=== PATIENT | male | born 1950 | race African-American/Black ===

== ENCOUNTER 2021-06-15 15:05 | Inpatient (IN) | payer OTHER ==
[2021-06-15 17:54] VITALS: BMI 22.9
[2021-06-15] MEDS ORDERED: BISMUTH SUBSALICYLATE 524 MG/30 ML PO PRN (20:03)
[2021-06-15] MEDS ORDERED: MAG HYDROX/AL HYDROX/SIMETH 30 ML UNIT-DOSE CUP PO PRN (20:03)
[2021-06-15] MEDS ORDERED: ACETAMINOPHEN 325 MG TABLET (FP) PO PRN ×2 (20:03)
[2021-06-15] MEDS ORDERED: ONDANSETRON *ODT* 4 MG TABLET SL PRN (20:03)
[2021-06-15] MEDS ORDERED: MENTHOL/PHENOL 1 EACH UD MM PRN (20:03)
[2021-06-15] MEDS ORDERED: NICOTINE POLACRILEX 4 MG GUM BUC PRN (20:03)
[2021-06-15] MEDS ORDERED: diazePAM 5 MG TABLET PO PRN (20:03)
[2021-06-15] MEDS ORDERED: MAGNESIUM CITRATE 300 ML BOTTLE PO PRN (20:03)
[2021-06-15] MEDS ORDERED: NICOTINE 10 MG CARTRIDGE (INHALER) IH PRN (20:03)
[2021-06-15] MEDS ORDERED: diazePAM 5 MG TABLET PO ONE (20:03)
[2021-06-15] MEDS ORDERED: IBUPROFEN 400 MG TABLET (FP) PO PRN (20:03)
[2021-06-15] MEDS ORDERED: METHOCARBAMOL 500 MG TABLET PO PRN (20:03)
[2021-06-15] MEDS: diazePAM 5 MG TABLET PO SCH (23:02)
[2021-06-15] MEDS: MELATONIN 5 MG TABLETS PO SCH (23:03)
[2021-06-15] MEDS: HYDROCHLOROTHIAZIDE 25 MG TABLET (FP) PO SCH (23:03)
[2021-06-15] MEDS: hydrOXYzine PAMOATE 25 MG CAPSULE (FP) PO SCH (23:03)
[2021-06-15] MEDS: THIAMINE HCL 100 MG TABLET (FP) PO SCH (23:03)
[2021-06-15] MEDS: PRENATAL VITAMINS W/ FOLIC ACID TABLET (FP) PO SCH (23:09)
[2021-06-16] MEDS: hydrOXYzine PAMOATE 25 MG CAPSULE (FP) PO SCH (05:22)
[2021-06-16] MEDS: diazePAM 5 MG TABLET PO SCH ×4 (05:22→23:44)
[2021-06-16] MEDS ORDERED: hydrOXYzine PAMOATE 25 MG CAPSULE (FP) PO PRN (08:17)
[2021-06-16] MEDS ORDERED: methaDONE HCL 10 MG TABLET PO ONE (08:26)
[2021-06-16] MEDS ORDERED: methaDONE 40 MG, methaDONE 20 MG PO ONE (08:45)
[2021-06-16] MEDS: PRENATAL VITAMINS W/ FOLIC ACID TABLET (FP) PO SCH (10:43)
[2021-06-16] MEDS: NICOTINE 21 MG/24 HOURS TOPICAL PATCH TD SCH (10:44)
[2021-06-16] MEDS ORDERED: methaDONE HCL 40 MG DISPERSABLE TABLET ONE (10:44)
[2021-06-16] MEDS ORDERED: methaDONE HCL 10 MG TABLET ONE (10:44)
[2021-06-16] MEDS: HYDROCHLOROTHIAZIDE 25 MG TABLET (FP) PO SCH (10:45)
[2021-06-16 11:37] LABS: HEMATOCRIT 34.5 % (35.4-49); HEMOGLOBIN 11.5 GM/dL (11.7-16.9); MCH 33.3 pg (25.7-33.7); MCHC 33.4 g/dl (32.0-35.9); MEAN CELL VOLUME 99.6 fl (80-96); PLATELET COUNT 158 10^3/uL (134-434); RBC 3.47 M/mm3 (4.00-5.60); RDW 14.8 % (11.9-15.9); WHITE BLOOD COUNT 5.8 K/mm3 (4.0-10.0)
[2021-06-16 11:41] LABS: CALCIUM 8.8 mg/dL (8.5-10.1)
[2021-06-16 11:42] LABS: ALBUMIN 3.1 g/dl (3.4-5.0); BLOOD UREA NITROGEN 14.6 mg/dL (7-18)
[2021-06-16 11:44] LABS: CREATININE 0.8 mg/dL (0.55-1.3)
[2021-06-16 11:46] LABS: BILIRUBIN,TOTAL 0.5 mg/dL (0.2-1); TOT PROT 6.3 g/dl (6.4-8.2)
[2021-06-16] MEDS ORDERED: PNEUMOC 13-VAL CONJ-DIP CRM/PF 0.5 ML DISP.SYRIN IM ONE (12:00)
[2021-06-16] MEDS: THIAMINE HCL 100 MG TABLET (FP) PO SCH (23:43)
[2021-06-17] MEDS: busPIRone HCL 10 MG TABLET (FP) PO SCH ×3 (00:26→22:33)
[2021-06-17] MEDS: MELATONIN 5 MG TABLETS PO SCH ×2 (00:27→22:33)
[2021-06-17] MEDS ORDERED: methaDONE HCL 10 MG TABLET ONE (05:00)
[2021-06-17] MEDS ORDERED: methaDONE HCL 40 MG DISPERSABLE TABLET ONE (05:00)
[2021-06-17] MEDS ORDERED: methaDONE HCL 40 MG DISPERSABLE TABLET PO SCH (06:00)
[2021-06-17] MEDS: diazePAM 5 MG TABLET PO SCH ×3 (06:24→22:32)
[2021-06-17] MEDS: methaDONE 40 MG, methaDONE 20 MG PO SCH (06:24)
[2021-06-17] MEDS ORDERED: buPROPion HCL 100 MG TABLET PO SCH (10:00)
[2021-06-17] MEDS: HYDROCHLOROTHIAZIDE 25 MG TABLET (FP) PO SCH (10:23)
[2021-06-17] MEDS: PRENATAL VITAMINS W/ FOLIC ACID TABLET (FP) PO SCH (10:23)
[2021-06-17] MEDS: NICOTINE 21 MG/24 HOURS TOPICAL PATCH TD SCH (10:24)
[2021-06-17] MEDS: KETOCONAZOLE 2% CREAM - 60GM TUBE TP SCH ×2 (13:29→22:40)
[2021-06-17] MEDS: FLUOCINONIDE 0.05% CREAM (60 GM TUBE) TP SCH ×3 (13:29→22:35)
[2021-06-17] MEDS: MAGNESIUM HYDROX 2400MG/30ML ORAL SUSPENSION 30 ML CUP PO PRN (22:33)
[2021-06-17] MEDS: THIAMINE HCL 100 MG TABLET (FP) PO SCH (22:33)
[2021-06-18] MEDS ORDERED: methaDONE HCL 40 MG DISPERSABLE TABLET ONE (05:08)
[2021-06-18] MEDS ORDERED: methaDONE HCL 10 MG TABLET ONE (05:08)
[2021-06-18] MEDS: methaDONE 40 MG, methaDONE 20 MG PO SCH (06:24)
[2021-06-18] MEDS: diazePAM 5 MG TABLET PO SCH ×2 (06:25→17:39)
[2021-06-18] MEDS: KETOCONAZOLE 2% CREAM - 60GM TUBE TP SCH ×3 (06:27→22:31)
[2021-06-18] MEDS: FLUOCINONIDE 0.05% CREAM (60 GM TUBE) TP SCH ×4 (10:18→22:31)
[2021-06-18] MEDS: PRENATAL VITAMINS W/ FOLIC ACID TABLET (FP) PO SCH (10:18)
[2021-06-18] MEDS: busPIRone HCL 10 MG TABLET (FP) PO SCH ×2 (10:18→22:29)
[2021-06-18] MEDS: HYDROCHLOROTHIAZIDE 25 MG TABLET (FP) PO SCH (10:18)
[2021-06-18] MEDS: NICOTINE 21 MG/24 HOURS TOPICAL PATCH TD SCH (10:20)
[2021-06-18] MEDS: THIAMINE HCL 100 MG TABLET (FP) PO SCH (22:29)
[2021-06-18] MEDS: MELATONIN 5 MG TABLETS PO SCH (22:29)
[2021-06-18] MEDS: MAGNESIUM HYDROX 2400MG/30ML ORAL SUSPENSION 30 ML CUP PO PRN (22:30)
[2021-06-19] MEDS ORDERED: methaDONE HCL 40 MG DISPERSABLE TABLET ONE (04:27)
[2021-06-19] MEDS ORDERED: methaDONE HCL 10 MG TABLET ONE (04:27)
[2021-06-19] MEDS ORDERED: diazePAM 5 MG TABLET PO ONE (06:00)
[2021-06-19] MEDS: methaDONE 40 MG, methaDONE 20 MG PO SCH (06:30)
[2021-06-19] MEDS: KETOCONAZOLE 2% CREAM - 60GM TUBE TP SCH ×2 (06:31→14:08)
[2021-06-19] MEDS: HYDROCHLOROTHIAZIDE 25 MG TABLET (FP) PO SCH (10:14)
[2021-06-19] MEDS: busPIRone HCL 10 MG TABLET (FP) PO SCH (10:14)
[2021-06-19] MEDS: PRENATAL VITAMINS W/ FOLIC ACID TABLET (FP) PO SCH (10:14)
[2021-06-19] MEDS: FLUOCINONIDE 0.05% CREAM (60 GM TUBE) TP SCH ×2 (10:17→14:08)
[2021-06-19] MEDS: NICOTINE 21 MG/24 HOURS TOPICAL PATCH TD SCH (10:19)
[2021-06-19 13:08] VITALS: BP 123/54; PULSE 60; TEMP 97.3
== END 2021-06-19 14:09 | disposition other institution (70) | DRG 897 ==
LOC: YASAS 15:05 → Y3N 20:53
PROVIDERS: ADMIT Allergy & Immunology; ATTEND Allergy & Immunology
PROC: HZ2ZZZZ Detoxification Services for Substance Abuse Treatment (ICD-10-PCS; principal; 2021-06-15)
DX: F10.230 Alcohol dependence with withdrawal, uncomplicated (principal); F11.20 Opioid dependence, uncomplicated; F12.20 Cannabis dependence, uncomplicated; F17.210 Nicotine dependence, cigarettes, uncomplicated; F19.24 Other psychoactive substance dependence with psychoactive substance-induced mood disorder; F41.8 Other specified anxiety disorders; I10 Essential (primary) hypertension; Z86.19 Personal history of other infectious and parasitic diseases; Z91.013 Allergy to seafood
CPT/HCPCS: 36415; 71046-TC-FY; 80053; 85027; 86780; C9803; U0003; U0005

== ENCOUNTER 2021-06-19 14:22 | Inpatient (IN) | payer OTHER ==
[2021-06-19] MEDS ORDERED: MAG HYDROX/AL HYDROX/SIMETH 30 ML UNIT-DOSE CUP PO PRN (16:07)
[2021-06-19] MEDS ORDERED: guaiFENesin 200 MG/10 ML 10 ML UNIT-DOSE CUPS PO PRN (16:07)
[2021-06-19] MEDS ORDERED: MENTHOL/PHENOL 1 EACH UD MM PRN (16:07)
[2021-06-19] MEDS ORDERED: IBUPROFEN 400 MG TABLET (FP) PO PRN (16:07)
[2021-06-19] MEDS ORDERED: MAGNESIUM CITRATE 300 ML BOTTLE PO PRN (16:07)
[2021-06-19] MEDS ORDERED: ACETAMINOPHEN 325 MG TABLET (FP) PO PRN (16:07)
[2021-06-19] MEDS ORDERED: LOPERAMIDE HCL 2 MG CAPSULE PO PRN (16:07)
[2021-06-19] MEDS ORDERED: P-EPHED 60MG/TRIPROLIDI 2.5MG TABLET PO PRN (16:07)
[2021-06-19] MEDS: NICOTINE 7 MG/24 HOURS TOPICAL PATCH TD SCH (18:50)
[2021-06-19] MEDS: hydrOXYzine PAMOATE 25 MG CAPSULE (FP) PO SCH ×2 (18:50→21:41)
[2021-06-19] MEDS: NICOTINE 10 MG CARTRIDGE (INHALER) IH PRN (21:41)
[2021-06-19] MEDS: MELATONIN 5 MG TABLETS PO SCH (21:41)
[2021-06-19] MEDS: THIAMINE HCL 100 MG TABLET (FP) PO SCH (21:41)
[2021-06-19] MEDS: busPIRone HCL 10 MG TABLET (FP) PO SCH (21:41)
[2021-06-19] MEDS: MAGNESIUM HYDROX 2400MG/30ML ORAL SUSPENSION 30 ML CUP PO PRN (21:41)
[2021-06-20] MEDS ORDERED: methaDONE HCL 40 MG DISPERSABLE TABLET ONE (04:21)
[2021-06-20] MEDS ORDERED: methaDONE HCL 10 MG TABLET ONE (04:21)
[2021-06-20] MEDS ORDERED: methaDONE HCL 10 MG TABLET PO SCH (06:00)
[2021-06-20] MEDS: hydrOXYzine PAMOATE 25 MG CAPSULE (FP) PO SCH ×5 (06:49→21:02)
[2021-06-20] MEDS: methaDONE 40 MG, methaDONE 20 MG PO SCH (06:49)
[2021-06-20] MEDS ORDERED: buPROPion HCL 100 MG TABLET PO SCH (10:00)
[2021-06-20] MEDS: busPIRone HCL 10 MG TABLET (FP) PO SCH ×2 (10:44→21:02)
[2021-06-20] MEDS: PRENATAL VITAMINS W/ FOLIC ACID TABLET (FP) PO SCH (10:44)
[2021-06-20] MEDS: NIFEdipine E.R. 30 MG TABLET PO SCH (10:44)
[2021-06-20] MEDS: NICOTINE 10 MG CARTRIDGE (INHALER) IH PRN (10:45)
[2021-06-20] MEDS: NICOTINE 7 MG/24 HOURS TOPICAL PATCH TD SCH (10:45)
[2021-06-20] MEDS ORDERED: PNEUMOC 13-VAL CONJ-DIP CRM/PF 0.5 ML DISP.SYRIN IM ONE (12:00)
[2021-06-20] MEDS: buPROPion HCL 100 MG TABLET PO SCH ×2 (12:18→18:14)
[2021-06-20] MEDS: MELATONIN 5 MG TABLETS PO SCH (21:02)
[2021-06-20] MEDS: THIAMINE HCL 100 MG TABLET (FP) PO SCH (21:02)
[2021-06-21] MEDS ORDERED: methaDONE HCL 10 MG TABLET ONE (05:28)
[2021-06-21] MEDS ORDERED: methaDONE HCL 40 MG DISPERSABLE TABLET ONE (05:28)
[2021-06-21] MEDS: methaDONE 40 MG, methaDONE 20 MG PO SCH (07:33)
[2021-06-21] MEDS: hydrOXYzine PAMOATE 25 MG CAPSULE (FP) PO SCH ×5 (07:33→21:36)
[2021-06-21] MEDS: NICOTINE 10 MG CARTRIDGE (INHALER) IH PRN (08:59)
[2021-06-21] MEDS ORDERED: PT OWN MED DRAWER 7, Y5N ONE ×2 (09:27→09:29)
[2021-06-21] MEDS: busPIRone HCL 10 MG TABLET (FP) PO SCH ×2 (09:45→21:36)
[2021-06-21] MEDS: NIFEdipine E.R. 30 MG TABLET PO SCH (09:45)
[2021-06-21] MEDS: NICOTINE 7 MG/24 HOURS TOPICAL PATCH TD SCH (09:45)
[2021-06-21] MEDS: PRENATAL VITAMINS W/ FOLIC ACID TABLET (FP) PO SCH (09:45)
[2021-06-21] MEDS: buPROPion HCL 100 MG TABLET PO SCH ×2 (09:46→17:08)
[2021-06-21] MEDS: MAGNESIUM HYDROX 2400MG/30ML ORAL SUSPENSION 30 ML CUP PO PRN (10:12)
[2021-06-21] MEDS: MELATONIN 5 MG TABLETS PO SCH (21:36)
[2021-06-21] MEDS: THIAMINE HCL 100 MG TABLET (FP) PO SCH (21:36)
[2021-06-22] MEDS ORDERED: methaDONE HCL 10 MG TABLET ONE (03:30)
[2021-06-22] MEDS ORDERED: methaDONE HCL 40 MG DISPERSABLE TABLET ONE (03:30)
[2021-06-22] MEDS: methaDONE 40 MG, methaDONE 20 MG PO SCH (06:25)
[2021-06-22] MEDS: NICOTINE 10 MG CARTRIDGE (INHALER) IH PRN ×2 (06:26→09:56)
[2021-06-22] MEDS: hydrOXYzine PAMOATE 25 MG CAPSULE (FP) PO SCH ×5 (06:26→21:00)
[2021-06-22] MEDS ORDERED: PT OWN MED DRAWER 7, Y5N ONE (09:16)
[2021-06-22] MEDS: buPROPion HCL 100 MG TABLET PO SCH ×2 (09:55→17:50)
[2021-06-22] MEDS: NIFEdipine E.R. 30 MG TABLET PO SCH (09:55)
[2021-06-22] MEDS: PRENATAL VITAMINS W/ FOLIC ACID TABLET (FP) PO SCH (09:55)
[2021-06-22] MEDS: NICOTINE 7 MG/24 HOURS TOPICAL PATCH TD SCH (09:56)
[2021-06-22] MEDS: busPIRone HCL 10 MG TABLET (FP) PO SCH ×2 (10:17→21:00)
[2021-06-22] MEDS: TOLNAFTATE 1% CREAM 15 GM TUBE TP SCH (21:00)
[2021-06-22] MEDS: MELATONIN 5 MG TABLETS PO SCH (21:00)
[2021-06-22] MEDS: THIAMINE HCL 100 MG TABLET (FP) PO SCH (21:00)
[2021-06-22] MEDS: FLUOCINONIDE 0.05% CREAM (15 GM TUBE) TP SCH (21:01)
[2021-06-23] MEDS ORDERED: methaDONE HCL 10 MG TABLET ONE (03:11)
[2021-06-23] MEDS ORDERED: methaDONE HCL 40 MG DISPERSABLE TABLET ONE (03:11)
[2021-06-23] MEDS: methaDONE 40 MG, methaDONE 20 MG PO SCH (06:32)
[2021-06-23] MEDS: hydrOXYzine PAMOATE 25 MG CAPSULE (FP) PO SCH ×5 (06:32→21:30)
[2021-06-23] MEDS: NICOTINE 10 MG CARTRIDGE (INHALER) IH PRN ×2 (09:09→22:01)
[2021-06-23] MEDS: PRENATAL VITAMINS W/ FOLIC ACID TABLET (FP) PO SCH (10:41)
[2021-06-23] MEDS: busPIRone HCL 10 MG TABLET (FP) PO SCH ×2 (10:41→21:30)
[2021-06-23] MEDS: FLUOCINONIDE 0.05% CREAM (15 GM TUBE) TP SCH ×2 (10:41→21:31)
[2021-06-23] MEDS: NICOTINE 7 MG/24 HOURS TOPICAL PATCH TD SCH (10:41)
[2021-06-23] MEDS: TOLNAFTATE 1% CREAM 15 GM TUBE TP SCH ×2 (10:42→21:31)
[2021-06-23] MEDS: NIFEdipine E.R. 30 MG TABLET PO SCH (10:42)
[2021-06-23] MEDS: buPROPion HCL 100 MG TABLET PO SCH ×2 (10:44→17:46)
[2021-06-23] MEDS ORDERED: PT OWN MED DRAWER 7, Y5N ONE ×2 (16:51→19:05)
[2021-06-23] MEDS: MELATONIN 5 MG TABLETS PO SCH (21:30)
[2021-06-23] MEDS: THIAMINE HCL 100 MG TABLET (FP) PO SCH (21:30)
[2021-06-24] MEDS ORDERED: methaDONE HCL 10 MG TABLET ONE (03:18)
[2021-06-24] MEDS ORDERED: methaDONE HCL 40 MG DISPERSABLE TABLET ONE (03:18)
[2021-06-24] MEDS: methaDONE 40 MG, methaDONE 20 MG PO SCH (06:28)
[2021-06-24] MEDS: hydrOXYzine PAMOATE 25 MG CAPSULE (FP) PO SCH ×5 (06:29→21:04)
[2021-06-24] MEDS: TOLNAFTATE 1% CREAM 15 GM TUBE TP SCH ×2 (09:45→21:04)
[2021-06-24] MEDS: NIFEdipine E.R. 30 MG TABLET PO SCH (09:45)
[2021-06-24] MEDS: busPIRone HCL 10 MG TABLET (FP) PO SCH ×2 (09:45→21:04)
[2021-06-24] MEDS: PRENATAL VITAMINS W/ FOLIC ACID TABLET (FP) PO SCH (09:45)
[2021-06-24] MEDS: NICOTINE 7 MG/24 HOURS TOPICAL PATCH TD SCH (09:45)
[2021-06-24] MEDS: FLUOCINONIDE 0.05% CREAM (15 GM TUBE) TP SCH ×2 (09:47→21:04)
[2021-06-24] MEDS: buPROPion HCL 100 MG TABLET PO SCH ×2 (14:18→17:12)
[2021-06-24] MEDS ORDERED: PT OWN MED DRAWER 7, Y5N ONE (16:47)
[2021-06-24] MEDS: MELATONIN 5 MG TABLETS PO SCH (21:04)
[2021-06-24] MEDS: THIAMINE HCL 100 MG TABLET (FP) PO SCH (21:04)
[2021-06-25] MEDS ORDERED: methaDONE HCL 10 MG TABLET ONE (02:59)
[2021-06-25] MEDS ORDERED: methaDONE HCL 40 MG DISPERSABLE TABLET ONE (02:59)
[2021-06-25] MEDS: hydrOXYzine PAMOATE 25 MG CAPSULE (FP) PO SCH ×5 (06:40→21:47)
[2021-06-25] MEDS: methaDONE 40 MG, methaDONE 20 MG PO SCH (06:40)
[2021-06-25] MEDS: buPROPion HCL 100 MG TABLET PO SCH ×2 (10:14→17:00)
[2021-06-25] MEDS: PRENATAL VITAMINS W/ FOLIC ACID TABLET (FP) PO SCH (10:17)
[2021-06-25] MEDS: NICOTINE 7 MG/24 HOURS TOPICAL PATCH TD SCH (10:17)
[2021-06-25] MEDS: NIFEdipine E.R. 30 MG TABLET PO SCH (10:17)
[2021-06-25] MEDS: busPIRone HCL 10 MG TABLET (FP) PO SCH ×2 (10:17→21:47)
[2021-06-25] MEDS: TOLNAFTATE 1% CREAM 15 GM TUBE TP SCH ×2 (10:18→21:53)
[2021-06-25] MEDS: NICOTINE 10 MG CARTRIDGE (INHALER) IH PRN ×2 (10:30→21:48)
[2021-06-25] MEDS: FLUOCINONIDE 0.05% CREAM (15 GM TUBE) TP SCH ×2 (10:55→21:53)
[2021-06-25] MEDS ORDERED: PT OWN MED DRAWER 7, Y5N ONE ×2 (11:10→16:58)
[2021-06-25] MEDS: THIAMINE HCL 100 MG TABLET (FP) PO SCH (21:47)
[2021-06-25] MEDS: MELATONIN 5 MG TABLETS PO SCH (21:47)
[2021-06-26] MEDS ORDERED: methaDONE HCL 40 MG DISPERSABLE TABLET ONE (03:18)
[2021-06-26] MEDS ORDERED: methaDONE HCL 10 MG TABLET ONE (03:18)
[2021-06-26] MEDS: methaDONE 40 MG, methaDONE 20 MG PO SCH (05:54)
[2021-06-26] MEDS: hydrOXYzine PAMOATE 25 MG CAPSULE (FP) PO SCH ×5 (05:54→21:09)
[2021-06-26] MEDS: PRENATAL VITAMINS W/ FOLIC ACID TABLET (FP) PO SCH (10:11)
[2021-06-26] MEDS: NIFEdipine E.R. 30 MG TABLET PO SCH (10:11)
[2021-06-26] MEDS: busPIRone HCL 10 MG TABLET (FP) PO SCH ×2 (10:11→21:09)
[2021-06-26] MEDS: FLUOCINONIDE 0.05% CREAM (15 GM TUBE) TP SCH ×2 (10:11→21:10)
[2021-06-26] MEDS: TOLNAFTATE 1% CREAM 15 GM TUBE TP SCH ×2 (10:13→21:10)
[2021-06-26] MEDS: NICOTINE 7 MG/24 HOURS TOPICAL PATCH TD SCH (10:13)
[2021-06-26] MEDS: NICOTINE 10 MG CARTRIDGE (INHALER) IH PRN (10:13)
[2021-06-26] MEDS: buPROPion HCL 100 MG TABLET PO SCH ×2 (10:15→17:38)
[2021-06-26] MEDS: MELATONIN 5 MG TABLETS PO SCH (21:09)
[2021-06-26] MEDS: THIAMINE HCL 100 MG TABLET (FP) PO SCH (21:09)
[2021-06-27] MEDS ORDERED: methaDONE HCL 40 MG DISPERSABLE TABLET ONE (03:14)
[2021-06-27] MEDS ORDERED: methaDONE HCL 10 MG TABLET ONE (03:15)
[2021-06-27] MEDS: hydrOXYzine PAMOATE 25 MG CAPSULE (FP) PO SCH ×5 (06:21→21:35)
[2021-06-27] MEDS: methaDONE 40 MG, methaDONE 20 MG PO SCH (06:21)
[2021-06-27] MEDS: PRENATAL VITAMINS W/ FOLIC ACID TABLET (FP) PO SCH (10:22)
[2021-06-27] MEDS: NIFEdipine E.R. 30 MG TABLET PO SCH (10:22)
[2021-06-27] MEDS: NICOTINE 7 MG/24 HOURS TOPICAL PATCH TD SCH (10:23)
[2021-06-27] MEDS: buPROPion HCL 100 MG TABLET PO SCH ×2 (10:23→17:25)
[2021-06-27] MEDS: busPIRone HCL 10 MG TABLET (FP) PO SCH ×2 (10:23→21:35)
[2021-06-27] MEDS: TOLNAFTATE 1% CREAM 15 GM TUBE TP SCH ×2 (10:24→21:36)
[2021-06-27] MEDS: FLUOCINONIDE 0.05% CREAM (15 GM TUBE) TP SCH ×2 (10:25→21:36)
[2021-06-27] MEDS ORDERED: PT OWN MED DRAWER 7, Y5N ONE (10:40)
[2021-06-27] MEDS: MELATONIN 5 MG TABLETS PO SCH (21:35)
[2021-06-27] MEDS: THIAMINE HCL 100 MG TABLET (FP) PO SCH (21:35)
[2021-06-27] MEDS: NICOTINE 10 MG CARTRIDGE (INHALER) IH PRN (21:36)
[2021-06-28] MEDS ORDERED: methaDONE HCL 10 MG TABLET ONE (03:17)
[2021-06-28] MEDS ORDERED: methaDONE HCL 40 MG DISPERSABLE TABLET ONE (03:17)
[2021-06-28] MEDS: hydrOXYzine PAMOATE 25 MG CAPSULE (FP) PO SCH ×5 (06:25→21:01)
[2021-06-28] MEDS: methaDONE 40 MG, methaDONE 20 MG PO SCH (06:25)
[2021-06-28] MEDS: NICOTINE 10 MG CARTRIDGE (INHALER) IH PRN ×2 (06:27→10:21)
[2021-06-28] MEDS: busPIRone HCL 10 MG TABLET (FP) PO SCH ×2 (10:14→21:00)
[2021-06-28] MEDS: buPROPion HCL 100 MG TABLET PO SCH ×2 (10:14→17:35)
[2021-06-28] MEDS: TOLNAFTATE 1% CREAM 15 GM TUBE TP SCH ×2 (10:14→21:01)
[2021-06-28] MEDS: PRENATAL VITAMINS W/ FOLIC ACID TABLET (FP) PO SCH (10:14)
[2021-06-28] MEDS: NIFEdipine E.R. 30 MG TABLET PO SCH (10:14)
[2021-06-28] MEDS: NICOTINE 7 MG/24 HOURS TOPICAL PATCH TD SCH (10:14)
[2021-06-28] MEDS: FLUOCINONIDE 0.05% CREAM (15 GM TUBE) TP SCH ×2 (10:16→21:01)
[2021-06-28] MEDS: MELATONIN 5 MG TABLETS PO SCH (21:00)
[2021-06-28] MEDS: THIAMINE HCL 100 MG TABLET (FP) PO SCH (21:00)
[2021-06-29] MEDS ORDERED: methaDONE HCL 40 MG DISPERSABLE TABLET ONE (03:13)
[2021-06-29] MEDS ORDERED: methaDONE HCL 10 MG TABLET ONE (03:13)
[2021-06-29] MEDS: hydrOXYzine PAMOATE 25 MG CAPSULE (FP) PO SCH ×2 (06:26→11:24)
[2021-06-29] MEDS: methaDONE 40 MG, methaDONE 20 MG PO SCH (06:26)
[2021-06-29] MEDS: busPIRone HCL 10 MG TABLET (FP) PO SCH ×2 (10:49→21:37)
[2021-06-29] MEDS: NICOTINE 7 MG/24 HOURS TOPICAL PATCH TD SCH (11:01)
[2021-06-29] MEDS: NIFEdipine E.R. 30 MG TABLET PO SCH (11:01)
[2021-06-29] MEDS: PRENATAL VITAMINS W/ FOLIC ACID TABLET (FP) PO SCH (11:01)
[2021-06-29] MEDS: FLUOCINONIDE 0.05% CREAM (15 GM TUBE) TP SCH ×2 (11:01→21:38)
[2021-06-29] MEDS: buPROPion HCL 100 MG TABLET PO SCH ×2 (11:01→17:45)
[2021-06-29] MEDS: NICOTINE 10 MG CARTRIDGE (INHALER) IH PRN ×3 (11:02→19:01)
[2021-06-29] MEDS: TOLNAFTATE 1% CREAM 15 GM TUBE TP SCH ×2 (11:03→21:38)
[2021-06-29] MEDS: MELATONIN 5 MG TABLETS PO SCH (21:36)
[2021-06-29] MEDS: THIAMINE HCL 100 MG TABLET (FP) PO SCH (21:36)
[2021-06-30] MEDS ORDERED: methaDONE HCL 40 MG DISPERSABLE TABLET ONE (03:21)
[2021-06-30] MEDS ORDERED: methaDONE HCL 10 MG TABLET ONE (03:21)
[2021-06-30] MEDS: methaDONE 40 MG, methaDONE 20 MG PO SCH (06:36)
[2021-06-30] MEDS ORDERED: PT OWN MED DRAWER 7, Y5N ONE ×2 (08:55→17:10)
[2021-06-30] MEDS: FLUOCINONIDE 0.05% CREAM (15 GM TUBE) TP SCH ×2 (09:52→21:05)
[2021-06-30] MEDS: NICOTINE 7 MG/24 HOURS TOPICAL PATCH TD SCH (09:52)
[2021-06-30] MEDS: NIFEdipine E.R. 30 MG TABLET PO SCH (09:52)
[2021-06-30] MEDS: busPIRone HCL 10 MG TABLET (FP) PO SCH ×2 (09:52→21:05)
[2021-06-30] MEDS: TOLNAFTATE 1% CREAM 15 GM TUBE TP SCH ×2 (09:52→22:00)
[2021-06-30] MEDS: PRENATAL VITAMINS W/ FOLIC ACID TABLET (FP) PO SCH (09:52)
[2021-06-30] MEDS: buPROPion HCL 100 MG TABLET PO SCH ×2 (09:53→17:10)
[2021-06-30] MEDS: MELATONIN 5 MG TABLETS PO SCH (21:05)
[2021-06-30] MEDS: THIAMINE HCL 100 MG TABLET (FP) PO SCH (21:05)
[2021-06-30] MEDS: NICOTINE 10 MG CARTRIDGE (INHALER) IH PRN (22:00)
[2021-07-01] MEDS ORDERED: methaDONE HCL 10 MG TABLET ONE (03:03)
[2021-07-01] MEDS ORDERED: methaDONE HCL 40 MG DISPERSABLE TABLET ONE (03:03)
[2021-07-01] MEDS: methaDONE 40 MG, methaDONE 20 MG PO SCH (06:42)
[2021-07-01] MEDS ORDERED: hydrOXYzine PAMOATE 25 MG CAPSULE (FP) PO PRN (08:29)
[2021-07-01] MEDS: NICOTINE 10 MG CARTRIDGE (INHALER) IH PRN (10:08)
[2021-07-01] MEDS: PRENATAL VITAMINS W/ FOLIC ACID TABLET (FP) PO SCH (10:08)
[2021-07-01] MEDS: TOLNAFTATE 1% CREAM 15 GM TUBE TP SCH ×2 (10:08→21:19)
[2021-07-01] MEDS: buPROPion HCL 100 MG TABLET PO SCH ×2 (10:08→17:48)
[2021-07-01] MEDS: NICOTINE 7 MG/24 HOURS TOPICAL PATCH TD SCH (10:08)
[2021-07-01] MEDS: NIFEdipine E.R. 30 MG TABLET PO SCH (10:08)
[2021-07-01] MEDS: FLUOCINONIDE 0.05% CREAM (15 GM TUBE) TP SCH ×2 (10:08→21:19)
[2021-07-01] MEDS: busPIRone HCL 10 MG TABLET (FP) PO SCH ×2 (10:08→21:18)
[2021-07-01] MEDS ORDERED: AMMONIUM LACTATE 12% LOTION 225 GM BOTTLE TP PRN (10:20)
[2021-07-01] MEDS: MELATONIN 5 MG TABLETS PO SCH (21:18)
[2021-07-01] MEDS: THIAMINE HCL 100 MG TABLET (FP) PO SCH (21:18)
[2021-07-02] MEDS ORDERED: methaDONE HCL 10 MG TABLET ONE (03:05)
[2021-07-02] MEDS ORDERED: methaDONE HCL 40 MG DISPERSABLE TABLET ONE (03:05)
[2021-07-02] MEDS: methaDONE 40 MG, methaDONE 20 MG PO SCH (06:29)
[2021-07-02] MEDS: NICOTINE 10 MG CARTRIDGE (INHALER) IH PRN ×3 (06:49→21:01)
[2021-07-02] MEDS: NIFEdipine E.R. 30 MG TABLET PO SCH (10:21)
[2021-07-02] MEDS: PRENATAL VITAMINS W/ FOLIC ACID TABLET (FP) PO SCH (10:21)
[2021-07-02] MEDS: NICOTINE 7 MG/24 HOURS TOPICAL PATCH TD SCH (10:22)
[2021-07-02] MEDS: buPROPion HCL 100 MG TABLET PO SCH ×2 (10:22→17:30)
[2021-07-02] MEDS: TOLNAFTATE 1% CREAM 15 GM TUBE TP SCH ×2 (10:22→21:02)
[2021-07-02] MEDS: busPIRone HCL 10 MG TABLET (FP) PO SCH ×2 (10:22→21:01)
[2021-07-02] MEDS: FLUOCINONIDE 0.05% CREAM (15 GM TUBE) TP SCH ×2 (10:22→21:02)
[2021-07-02] MEDS: THIAMINE HCL 100 MG TABLET (FP) PO SCH (21:01)
[2021-07-02] MEDS: MELATONIN 5 MG TABLETS PO SCH (21:01)
[2021-07-03] MEDS ORDERED: methaDONE HCL 10 MG TABLET ONE (05:58)
[2021-07-03] MEDS ORDERED: methaDONE HCL 40 MG DISPERSABLE TABLET ONE (05:58)
[2021-07-03] MEDS ORDERED: methaDONE 40 MG, methaDONE 20 MG PO SCH (06:00)
[2021-07-03 07:18] VITALS: BP 155/82; PULSE 65; TEMP 97.5
[2021-07-03] MEDS: PRENATAL VITAMINS W/ FOLIC ACID TABLET (FP) PO SCH (09:41)
[2021-07-03] MEDS: busPIRone HCL 10 MG TABLET (FP) PO SCH (09:42)
[2021-07-03] MEDS: NIFEdipine E.R. 30 MG TABLET PO SCH (09:42)
[2021-07-03] MEDS: FLUOCINONIDE 0.05% CREAM (15 GM TUBE) TP SCH (09:42)
[2021-07-03] MEDS: NICOTINE 10 MG CARTRIDGE (INHALER) IH PRN (09:44)
== END 2021-07-03 09:49 | disposition home or self-care (01) | DRG 895 ==
LOC: YASAS 14:22 → Y3W 14:24
PROVIDERS: ADMIT Allergy & Immunology; ATTEND Allergy & Immunology
PROC: HZ42ZZZ Group Counseling for Substance Abuse Treatment, Cognitive-Behavioral (ICD-10-PCS; principal; 2021-06-19)
DX: F11.20 Opioid dependence, uncomplicated (principal); F10.20 Alcohol dependence, uncomplicated; F12.20 Cannabis dependence, uncomplicated; F17.210 Nicotine dependence, cigarettes, uncomplicated; F19.24 Other psychoactive substance dependence with psychoactive substance-induced mood disorder; F41.9 Anxiety disorder, unspecified; F32.9 Major depressive disorder, single episode, unspecified; I10 Essential (primary) hypertension; B19.20 Unspecified viral hepatitis C without hepatic coma
CPT/HCPCS: 90670

== ENCOUNTER 2021-12-10 12:00 | Inpatient (IN) | payer OTHER ==
[2021-12-10] MEDS ORDERED: MAGNESIUM CITRATE 300 ML BOTTLE PO PRN (15:42)
[2021-12-10] MEDS ORDERED: MAGNESIUM HYDROX 2400MG/30ML ORAL SUSPENSION 30 ML CUP PO PRN (15:42)
[2021-12-10] MEDS ORDERED: MENTHOL/PHENOL 1 EACH UD MM PRN (15:42)
[2021-12-10] MEDS ORDERED: MAG HYDROX/AL HYDROX/SIMETH 30 ML UNIT-DOSE CUP PO PRN (15:42)
[2021-12-10] MEDS ORDERED: chlordiazePOXIDE HCL 25 MG CAPSULE PO PRN (15:42)
[2021-12-10] MEDS ORDERED: LOPERAMIDE HCL 2 MG CAPSULE PO PRN (15:42)
[2021-12-10] MEDS ORDERED: BISMUTH SUBSALICYLATE 524 MG/30 ML PO PRN (15:42)
[2021-12-10] MEDS ORDERED: IBUPROFEN 400 MG TABLET (FP) PO PRN (15:42)
[2021-12-10] MEDS ORDERED: ACETAMINOPHEN 325 MG TABLET (FP) PO PRN ×2 (15:42)
[2021-12-10] MEDS ORDERED: ONDANSETRON *ODT* 4 MG TABLET SL PRN (15:42)
[2021-12-10 16:05] VITALS: BMI 23.1
[2021-12-10] MEDS: chlordiazePOXIDE HCL 25 MG CAPSULE PO SCH ×2 (21:14→22:23)
[2021-12-10] MEDS: hydrOXYzine PAMOATE 25 MG CAPSULE (FP) PO SCH ×2 (21:15→21:20)
[2021-12-10] MEDS: THIAMINE HCL 100 MG TABLET (FP) PO SCH (21:20)
[2021-12-10] MEDS: PRENATAL VITAMINS W/ FOLIC ACID TABLET (FP) PO SCH (21:20)
[2021-12-10] MEDS ORDERED: NIFEdipine E.R. 30 MG TABLET PO ONE (21:34)
[2021-12-10] MEDS ORDERED: OXICONAZOLE NITRATE TP SCH (22:00)
[2021-12-10] MEDS: MELATONIN 5 MG TABLETS PO SCH (22:23)
[2021-12-10] MEDS: KETOCONAZOLE 2% CREAM - 60GM TUBE TP SCH (23:40)
[2021-12-11] MEDS: KETOCONAZOLE 2% CREAM - 60GM TUBE TP SCH ×3 (05:49→22:45)
[2021-12-11] MEDS: hydrOXYzine PAMOATE 25 MG CAPSULE (FP) PO SCH (05:49)
[2021-12-11] MEDS: chlordiazePOXIDE HCL 25 MG CAPSULE PO SCH ×4 (05:50→22:43)
[2021-12-11] MEDS ORDERED: hydrOXYzine PAMOATE 25 MG CAPSULE (FP) PO PRN (09:03)
[2021-12-11] MEDS ORDERED: methaDONE HCL 10 MG TABLET PO SCH (09:15)
[2021-12-11] MEDS ORDERED: methaDONE 40 MG, methaDONE 20 MG PO ONE (09:45)
[2021-12-11] MEDS ORDERED: methaDONE HCL 40 MG DISPERSABLE TABLET ONE (10:04)
[2021-12-11] MEDS ORDERED: methaDONE HCL 10 MG TABLET ONE (10:04)
[2021-12-11] MEDS: METHOCARBAMOL 500 MG TABLET PO PRN (10:07)
[2021-12-11] MEDS: PRENATAL VITAMINS W/ FOLIC ACID TABLET (FP) PO SCH (10:08)
[2021-12-11] MEDS: busPIRone HCL 10 MG TABLET (FP) PO SCH ×2 (10:08→22:43)
[2021-12-11] MEDS: NIFEdipine E.R. 30 MG TABLET PO SCH (10:08)
[2021-12-11] MEDS: buPROPion HCL 100 MG TABLET PO SCH ×2 (12:03→17:40)
[2021-12-11 12:37] LABS: HEMATOCRIT 35.3 % (35.4-49); HEMOGLOBIN 12.1 GM/dL (11.7-16.9); MCH 33.5 pg (25.7-33.7); MCHC 34.2 g/dl (32.0-35.9); MEAN PLT VOLUME 9.3 fl (7.5-11.1); PLATELET COUNT 143 10^3/uL (134-434); RDW 15.7 % (11.9-15.9); WHITE BLOOD COUNT 4.6 K/mm3 (4.0-10.0)
[2021-12-11 12:48] LABS: ALBUMIN 3.4 g/dl (3.4-5.0); BLOOD UREA NITROGEN 23.5 mg/dL (7-18)
[2021-12-11 12:53] LABS: BILIRUBIN,TOTAL 0.8 mg/dL (0.2-1); TOT PROT 6.6 g/dl (6.4-8.2)
[2021-12-11] MEDS ORDERED: PNEUMOC 13-VAL CONJ-DIP CRM/PF 0.5 ML DISP.SYRIN IM ONE (13:00)
[2021-12-11] MEDS ORDERED: cloNIDine HCL 0.1 MG TABLET PO ONE (19:00)
[2021-12-11] MEDS: THIAMINE HCL 100 MG TABLET (FP) PO SCH (22:43)
[2021-12-11] MEDS: MELATONIN 5 MG TABLETS PO SCH (22:44)
[2021-12-12] MEDS ORDERED: methaDONE HCL 40 MG DISPERSABLE TABLET ONE (04:49)
[2021-12-12] MEDS ORDERED: methaDONE HCL 10 MG TABLET ONE (04:49)
[2021-12-12] MEDS: chlordiazePOXIDE HCL 25 MG CAPSULE PO SCH ×4 (05:53→22:19)
[2021-12-12] MEDS: methaDONE 40 MG, methaDONE 20 MG PO SCH (05:54)
[2021-12-12] MEDS: KETOCONAZOLE 2% CREAM - 60GM TUBE TP SCH ×3 (05:59→22:20)
[2021-12-12] MEDS: NIFEdipine E.R. 30 MG TABLET PO SCH (10:29)
[2021-12-12] MEDS: buPROPion HCL 100 MG TABLET PO SCH ×2 (10:29→18:27)
[2021-12-12] MEDS: busPIRone HCL 10 MG TABLET (FP) PO SCH ×2 (10:29→22:19)
[2021-12-12] MEDS: PRENATAL VITAMINS W/ FOLIC ACID TABLET (FP) PO SCH (10:29)
[2021-12-12] MEDS: NICOTINE 10 MG CARTRIDGE (INHALER) IH PRN (21:26)
[2021-12-12] MEDS: THIAMINE HCL 100 MG TABLET (FP) PO SCH (22:19)
[2021-12-12] MEDS: MELATONIN 5 MG TABLETS PO SCH (22:19)
[2021-12-13] MEDS ORDERED: chlordiazePOXIDE HCL 10 MG CAPSULE PO PRN
[2021-12-13] MEDS ORDERED: methaDONE HCL 40 MG DISPERSABLE TABLET ONE (04:23)
[2021-12-13] MEDS ORDERED: methaDONE HCL 10 MG TABLET ONE (04:23)
[2021-12-13] MEDS: KETOCONAZOLE 2% CREAM - 60GM TUBE TP SCH ×3 (06:17→22:42)
[2021-12-13] MEDS: methaDONE 40 MG, methaDONE 20 MG PO SCH (06:17)
[2021-12-13] MEDS: chlordiazePOXIDE HCL 10 MG CAPSULE PO SCH ×4 (06:18→22:41)
[2021-12-13] MEDS: PRENATAL VITAMINS W/ FOLIC ACID TABLET (FP) PO SCH (10:22)
[2021-12-13] MEDS: busPIRone HCL 10 MG TABLET (FP) PO SCH ×2 (10:22→22:42)
[2021-12-13] MEDS: buPROPion HCL 100 MG TABLET PO SCH ×2 (10:22→22:45)
[2021-12-13] MEDS: NIFEdipine E.R. 30 MG TABLET PO SCH (10:22)
[2021-12-13] MEDS: NICOTINE 10 MG CARTRIDGE (INHALER) IH PRN (13:29)
[2021-12-13] MEDS: MELATONIN 5 MG TABLETS PO SCH (22:42)
[2021-12-13] MEDS: THIAMINE HCL 100 MG TABLET (FP) PO SCH (22:42)
[2021-12-14] MEDS ORDERED: methaDONE HCL 40 MG DISPERSABLE TABLET ONE (04:37)
[2021-12-14] MEDS ORDERED: methaDONE HCL 10 MG TABLET ONE (04:37)
[2021-12-14] MEDS: KETOCONAZOLE 2% CREAM - 60GM TUBE TP SCH ×3 (06:23→22:06)
[2021-12-14] MEDS: methaDONE 40 MG, methaDONE 20 MG PO SCH (06:23)
[2021-12-14] MEDS: chlordiazePOXIDE HCL 10 MG CAPSULE PO SCH ×2 (06:23→17:41)
[2021-12-14] MEDS: buPROPion HCL 100 MG TABLET PO SCH ×2 (10:10→17:38)
[2021-12-14] MEDS: NIFEdipine E.R. 30 MG TABLET PO SCH (10:10)
[2021-12-14] MEDS: busPIRone HCL 10 MG TABLET (FP) PO SCH ×2 (10:10→22:05)
[2021-12-14] MEDS: PRENATAL VITAMINS W/ FOLIC ACID TABLET (FP) PO SCH (10:11)
[2021-12-14] MEDS: NICOTINE 10 MG CARTRIDGE (INHALER) IH PRN ×2 (14:12→17:43)
[2021-12-14] MEDS: cloNIDine HCL 0.1 MG TABLET PO PRN (22:05)
[2021-12-14] MEDS: THIAMINE HCL 100 MG TABLET (FP) PO SCH (22:05)
[2021-12-14] MEDS: MELATONIN 5 MG TABLETS PO SCH (22:05)
[2021-12-15] MEDS ORDERED: methaDONE HCL 40 MG DISPERSABLE TABLET ONE (04:12)
[2021-12-15] MEDS ORDERED: methaDONE HCL 10 MG TABLET ONE (04:12)
[2021-12-15] MEDS ORDERED: chlordiazePOXIDE HCL 10 MG CAPSULE PO ONE (05:00)
[2021-12-15] MEDS: methaDONE 40 MG, methaDONE 20 MG PO SCH (05:31)
[2021-12-15] MEDS: cloNIDine HCL 0.1 MG TABLET PO PRN (05:31)
[2021-12-15] MEDS: KETOCONAZOLE 2% CREAM - 60GM TUBE TP SCH ×3 (05:43→22:39)
[2021-12-15] MEDS: buPROPion HCL 100 MG TABLET PO SCH ×2 (10:19→18:28)
[2021-12-15] MEDS: PRENATAL VITAMINS W/ FOLIC ACID TABLET (FP) PO SCH (10:19)
[2021-12-15] MEDS: NIFEdipine E.R. 30 MG TABLET PO SCH (10:19)
[2021-12-15] MEDS: busPIRone HCL 10 MG TABLET (FP) PO SCH ×2 (10:19→22:40)
[2021-12-15] MEDS: NICOTINE 10 MG CARTRIDGE (INHALER) IH PRN ×2 (10:41→18:21)
[2021-12-15] MEDS: METHOCARBAMOL 500 MG TABLET PO PRN (22:40)
[2021-12-15] MEDS: THIAMINE HCL 100 MG TABLET (FP) PO SCH (22:40)
[2021-12-15] MEDS: MELATONIN 5 MG TABLETS PO SCH (22:40)
[2021-12-16] MEDS ORDERED: methaDONE HCL 40 MG DISPERSABLE TABLET ONE (04:07)
[2021-12-16] MEDS ORDERED: methaDONE HCL 10 MG TABLET ONE (04:07)
[2021-12-16] MEDS: KETOCONAZOLE 2% CREAM - 60GM TUBE TP SCH (05:32)
[2021-12-16] MEDS: methaDONE 40 MG, methaDONE 20 MG PO SCH (05:32)
[2021-12-16 08:11] LABS: SARS-CoV-2 NAA Not Detected (Not Detected)
[2021-12-16] MEDS: NICOTINE 10 MG CARTRIDGE (INHALER) IH PRN (08:16)
[2021-12-16 08:41] VITALS: BP 116/68; PULSE 98; TEMP 97.3
[2021-12-16] MEDS: buPROPion HCL 100 MG TABLET PO SCH (10:06)
[2021-12-16] MEDS: busPIRone HCL 10 MG TABLET (FP) PO SCH (10:06)
[2021-12-16] MEDS: NIFEdipine E.R. 30 MG TABLET PO SCH (10:06)
[2021-12-16] MEDS: PRENATAL VITAMINS W/ FOLIC ACID TABLET (FP) PO SCH (10:06)
[2021-12-18 14:07] LABS: SARS-CoV-2 NAA Not Detected (Not Detected)
== END 2021-12-16 11:37 | disposition other institution (70) | DRG 897 ==
LOC: YASAS 12:00 → Y3N 17:35
PROVIDERS: ADMIT Allergy & Immunology; ATTEND Allergy & Immunology
PROC: HZ2ZZZZ Detoxification Services for Substance Abuse Treatment (ICD-10-PCS; principal; 2021-12-10)
DX: F10.230 Alcohol dependence with withdrawal, uncomplicated (principal); F11.20 Opioid dependence, uncomplicated; F12.20 Cannabis dependence, uncomplicated; F17.210 Nicotine dependence, cigarettes, uncomplicated; F19.24 Other psychoactive substance dependence with psychoactive substance-induced mood disorder; F32.A Depression, unspecified; I10 Essential (primary) hypertension; R79.89 Other specified abnormal findings of blood chemistry; R74.01 Elevation of levels of liver transaminase levels; Z86.59 Personal history of other mental and behavioral disorders; Z91.013 Allergy to seafood
CPT/HCPCS: 36415; 80053; 85027; 86780; 87811; C9803; J0735; U0003; U0005

== ENCOUNTER 2021-12-16 12:42 | Inpatient (IN) | payer OTHER ==
[2021-12-16] MEDS ORDERED: LOPERAMIDE HCL 2 MG CAPSULE PO PRN (14:27)
[2021-12-16] MEDS ORDERED: guaiFENesin 200 MG/10 ML 10 ML UNIT-DOSE CUPS PO PRN (14:27)
[2021-12-16] MEDS ORDERED: MAG HYDROX/AL HYDROX/SIMETH 30 ML UNIT-DOSE CUP PO PRN (14:27)
[2021-12-16] MEDS ORDERED: MENTHOL/PHENOL 1 EACH UD MM PRN (14:27)
[2021-12-16] MEDS ORDERED: MAGNESIUM HYDROX 2400MG/30ML ORAL SUSPENSION 30 ML CUP PO PRN (14:27)
[2021-12-16] MEDS ORDERED: ACETAMINOPHEN 325 MG TABLET (FP) PO PRN (14:27)
[2021-12-16] MEDS ORDERED: MAGNESIUM CITRATE 300 ML BOTTLE PO PRN (14:27)
[2021-12-16] MEDS ORDERED: IBUPROFEN 400 MG TABLET (FP) PO PRN (14:27)
[2021-12-16] MEDS ORDERED: P-EPHED 60MG/TRIPROLIDI 2.5MG TABLET PO PRN (14:27)
[2021-12-16] MEDS: NICOTINE 10 MG CARTRIDGE (INHALER) IH PRN ×2 (16:04→21:24)
[2021-12-16] MEDS: MELATONIN 5 MG TABLETS PO SCH (21:24)
[2021-12-16] MEDS: THIAMINE HCL 100 MG TABLET (FP) PO SCH (21:24)
[2021-12-16] MEDS: hydrOXYzine PAMOATE 25 MG CAPSULE (FP) PO PRN (21:27)
[2021-12-17] MEDS: methaDONE HCL 10 MG TABLET PO SCH (07:54)
[2021-12-17] MEDS ORDERED: NIFEdipine E.R. 30 MG TABLET PO SCH (10:00)
[2021-12-17] MEDS: NICOTINE 7 MG/24 HOURS TOPICAL PATCH TD SCH (10:14)
[2021-12-17] MEDS: PRENATAL VITAMINS W/ FOLIC ACID TABLET (FP) PO SCH (10:14)
[2021-12-17] MEDS: busPIRone HCL 10 MG TABLET (FP) PO SCH ×2 (12:51→21:21)
[2021-12-17] MEDS: buPROPion HCL 100 MG TABLET PO SCH ×2 (12:51→21:19)
[2021-12-17] MEDS: ACAMPROSATE CALCIUM 333 MG TABLET.DR PO SCH ×2 (12:51→21:20)
[2021-12-17] MEDS: NICOTINE 10 MG CARTRIDGE (INHALER) IH PRN (12:53)
[2021-12-17] MEDS: THIAMINE HCL 100 MG TABLET (FP) PO SCH (21:20)
[2021-12-17] MEDS: MELATONIN 5 MG TABLETS PO SCH (21:20)
[2021-12-17] MEDS: hydrOXYzine PAMOATE 25 MG CAPSULE (FP) PO PRN (21:23)
[2021-12-18] MEDS: methaDONE HCL 10 MG TABLET PO SCH (06:09)
[2021-12-18] MEDS: ACAMPROSATE CALCIUM 333 MG TABLET.DR PO SCH ×2 (10:15→21:50)
[2021-12-18] MEDS: buPROPion HCL 100 MG TABLET PO SCH ×2 (10:16→17:36)
[2021-12-18] MEDS: PRENATAL VITAMINS W/ FOLIC ACID TABLET (FP) PO SCH (10:17)
[2021-12-18] MEDS: busPIRone HCL 10 MG TABLET (FP) PO SCH ×2 (10:17→21:50)
[2021-12-18] MEDS: NICOTINE 7 MG/24 HOURS TOPICAL PATCH TD SCH (10:17)
[2021-12-18] MEDS: NIFEdipine E.R 60 MG TABLET PO SCH (10:18)
[2021-12-18] MEDS: NICOTINE 10 MG CARTRIDGE (INHALER) IH PRN (10:20)
[2021-12-18] MEDS: MELATONIN 5 MG TABLETS PO SCH (21:51)
[2021-12-18] MEDS: hydrOXYzine PAMOATE 25 MG CAPSULE (FP) PO PRN (21:51)
[2021-12-18] MEDS: THIAMINE HCL 100 MG TABLET (FP) PO SCH (21:51)
[2021-12-19] MEDS ORDERED: methaDONE HCL 40 MG DISPERSABLE TABLET ONE (06:03)
[2021-12-19] MEDS ORDERED: methaDONE HCL 10 MG TABLET ONE (06:03)
[2021-12-19] MEDS: methaDONE 40 MG, methaDONE 20 MG PO SCH (06:52)
[2021-12-19] MEDS: PRENATAL VITAMINS W/ FOLIC ACID TABLET (FP) PO SCH (09:15)
[2021-12-19] MEDS: busPIRone HCL 10 MG TABLET (FP) PO SCH ×2 (09:15→21:22)
[2021-12-19] MEDS: buPROPion HCL 100 MG TABLET PO SCH ×2 (09:15→17:40)
[2021-12-19] MEDS: NICOTINE 7 MG/24 HOURS TOPICAL PATCH TD SCH (09:16)
[2021-12-19] MEDS: ACAMPROSATE CALCIUM 333 MG TABLET.DR PO SCH ×2 (09:16→21:23)
[2021-12-19] MEDS: NIFEdipine E.R 60 MG TABLET PO SCH (09:16)
[2021-12-19] MEDS: NICOTINE 10 MG CARTRIDGE (INHALER) IH PRN (09:17)
[2021-12-19] MEDS: MELATONIN 5 MG TABLETS PO SCH (21:22)
[2021-12-19] MEDS: THIAMINE HCL 100 MG TABLET (FP) PO SCH (21:23)
[2021-12-19] MEDS: hydrOXYzine PAMOATE 25 MG CAPSULE (FP) PO PRN (21:24)
[2021-12-20] MEDS ORDERED: methaDONE HCL 40 MG DISPERSABLE TABLET ONE (03:34)
[2021-12-20] MEDS ORDERED: methaDONE HCL 10 MG TABLET ONE (03:34)
[2021-12-20] MEDS: methaDONE 40 MG, methaDONE 20 MG PO SCH (06:23)
[2021-12-20] MEDS: PRENATAL VITAMINS W/ FOLIC ACID TABLET (FP) PO SCH (09:52)
[2021-12-20] MEDS: busPIRone HCL 10 MG TABLET (FP) PO SCH ×2 (09:52→23:01)
[2021-12-20] MEDS: buPROPion HCL 100 MG TABLET PO SCH ×2 (09:52→17:14)
[2021-12-20] MEDS: NICOTINE 10 MG CARTRIDGE (INHALER) IH PRN (09:53)
[2021-12-20] MEDS: NICOTINE 7 MG/24 HOURS TOPICAL PATCH TD SCH (09:53)
[2021-12-20] MEDS: ACAMPROSATE CALCIUM 333 MG TABLET.DR PO SCH ×2 (09:53→23:01)
[2021-12-20] MEDS: NIFEdipine E.R 60 MG TABLET PO SCH (09:55)
[2021-12-20] MEDS: THIAMINE HCL 100 MG TABLET (FP) PO SCH (23:01)
[2021-12-20] MEDS: MELATONIN 5 MG TABLETS PO SCH (23:01)
[2021-12-21] MEDS ORDERED: methaDONE HCL 10 MG TABLET ONE (02:43)
[2021-12-21] MEDS ORDERED: methaDONE HCL 40 MG DISPERSABLE TABLET ONE (02:43)
[2021-12-21] MEDS: methaDONE 40 MG, methaDONE 20 MG PO SCH (06:14)
[2021-12-21] MEDS: busPIRone HCL 10 MG TABLET (FP) PO SCH ×2 (10:00→22:01)
[2021-12-21] MEDS: PRENATAL VITAMINS W/ FOLIC ACID TABLET (FP) PO SCH (10:00)
[2021-12-21] MEDS: ACAMPROSATE CALCIUM 333 MG TABLET.DR PO SCH ×2 (10:00→22:02)
[2021-12-21] MEDS: NICOTINE 7 MG/24 HOURS TOPICAL PATCH TD SCH (10:01)
[2021-12-21] MEDS: buPROPion HCL 100 MG TABLET PO SCH ×2 (10:01→19:31)
[2021-12-21] MEDS: NIFEdipine E.R 60 MG TABLET PO SCH (12:04)
[2021-12-21] MEDS: NICOTINE 10 MG CARTRIDGE (INHALER) IH PRN ×3 (14:45→22:55)
[2021-12-21] MEDS: hydrOXYzine PAMOATE 25 MG CAPSULE (FP) PO PRN (22:01)
[2021-12-21] MEDS: MELATONIN 5 MG TABLETS PO SCH (22:01)
[2021-12-21] MEDS: THIAMINE HCL 100 MG TABLET (FP) PO SCH (22:01)
[2021-12-22] MEDS ORDERED: methaDONE HCL 10 MG TABLET ONE (03:06)
[2021-12-22] MEDS ORDERED: methaDONE HCL 40 MG DISPERSABLE TABLET ONE (03:06)
[2021-12-22] MEDS: methaDONE 40 MG, methaDONE 20 MG PO SCH (06:23)
[2021-12-22 07:17] VITALS: PULSE 84; TEMP 97.1
[2021-12-22] MEDS: NICOTINE 10 MG CARTRIDGE (INHALER) IH PRN ×2 (09:12→14:47)
[2021-12-22] MEDS: NIFEdipine E.R 60 MG TABLET PO SCH (09:54)
[2021-12-22] MEDS: PRENATAL VITAMINS W/ FOLIC ACID TABLET (FP) PO SCH (09:54)
[2021-12-22] MEDS: busPIRone HCL 10 MG TABLET (FP) PO SCH (09:54)
[2021-12-22] MEDS: ACAMPROSATE CALCIUM 333 MG TABLET.DR PO SCH (09:55)
[2021-12-22] MEDS: buPROPion HCL 100 MG TABLET PO SCH (09:55)
[2021-12-22] MEDS: NICOTINE 7 MG/24 HOURS TOPICAL PATCH TD SCH (09:56)
[2021-12-22 11:57] VITALS: BP 104/58
[2021-12-23 10:09] LABS: SARS-CoV-2 NAA Not Detected (Not Detected)
== END 2021-12-22 15:00 | disposition home or self-care (01) | DRG 895 ==
LOC: YASAS 12:42 → Y5N 12:43
PROVIDERS: ADMIT Allergy & Immunology; ATTEND Allergy & Immunology
PROC: HZ42ZZZ Group Counseling for Substance Abuse Treatment, Cognitive-Behavioral (ICD-10-PCS; principal; 2021-12-16)
DX: F11.20 Opioid dependence, uncomplicated (principal); F10.20 Alcohol dependence, uncomplicated; F12.20 Cannabis dependence, uncomplicated; F17.210 Nicotine dependence, cigarettes, uncomplicated; F41.8 Other specified anxiety disorders; F32.A Depression, unspecified; I10 Essential (primary) hypertension; R79.89 Other specified abnormal findings of blood chemistry; R74.01 Elevation of levels of liver transaminase levels
CPT/HCPCS: C9803; U0003; U0005

== ENCOUNTER 2022-03-31 12:40 | Inpatient (IN) | payer OTHER ==
[2022-03-31 13:02] VITALS: BMI 23.7
[2022-03-31] MEDS ORDERED: DICYCLOMINE HCL 10 MG CAPSULE PO PRN (14:04)
[2022-03-31] MEDS ORDERED: IBUPROFEN 600 MG TABLET (FP) PO PRN (14:04)
[2022-03-31] MEDS ORDERED: MAGNESIUM HYDROX 2400MG/30ML ORAL SUSPENSION 30 ML CUP PO PRN (14:04)
[2022-03-31] MEDS ORDERED: ONDANSETRON *ODT* 4 MG TABLET SL PRN (14:04)
[2022-03-31] MEDS ORDERED: IBUPROFEN 400 MG TABLET (FP) PO PRN (14:04)
[2022-03-31] MEDS ORDERED: MAG HYDROX/AL HYDROX/SIMETH 30 ML UNIT-DOSE CUP PO PRN (14:04)
[2022-03-31] MEDS ORDERED: BENZOCAINE/MENTHOL (CHLORASEPTIC ) LOZENGE MM PRN (14:04)
[2022-03-31] MEDS ORDERED: ACETAMINOPHEN 325 MG TABLET (FP) PO PRN ×2 (14:04)
[2022-03-31] MEDS ORDERED: LORazepam 1 MG TABLET PO PRN (14:04)
[2022-03-31] MEDS ORDERED: MAGNESIUM CITRATE 300 ML BOTTLE PO PRN (14:04)
[2022-03-31] MEDS ORDERED: LOPERAMIDE HCL 2 MG CAPSULE PO PRN (14:04)
[2022-03-31] MEDS ORDERED: BISMUTH SUBSALICYLATE 262 MG/15 ML BTL PO PRN (14:04)
[2022-03-31] MEDS: LORazepam 2 MG TABLET PO SCH ×2 (19:08→22:51)
[2022-03-31] MEDS: THIAMINE HCL 100 MG TABLET (FP) PO SCH (22:51)
[2022-03-31] MEDS: MELATONIN 5 MG TABLETS PO SCH (22:52)
[2022-04-01] MEDS: LORazepam 2 MG TABLET PO SCH ×4 (05:58→22:31)
[2022-04-01] MEDS ORDERED: methaDONE HCL 10 MG TABLET PO ONE (09:25)
[2022-04-01] MEDS ORDERED: methaDONE 40 MG, methaDONE 20 MG PO ONE (09:53)
[2022-04-01] MEDS ORDERED: NIFEdipine E.R 60 MG TABLET PO SCH (10:00)
[2022-04-01] MEDS ORDERED: methaDONE HCL 40 MG DISPERSABLE TABLET ONE (10:52)
[2022-04-01] MEDS ORDERED: methaDONE HCL 10 MG TABLET ONE (10:52)
[2022-04-01] MEDS: PRENATAL VITAMINS W/ FOLIC ACID TABLET (FP) PO SCH (10:53)
[2022-04-01] MEDS: buPROPion HCL 100 MG TABLET PO SCH ×2 (10:54→17:45)
[2022-04-01] MEDS: busPIRone HCL 10 MG TABLET (FP) PO SCH ×2 (10:54→22:32)
[2022-04-01] MEDS: NICOTINE 7 MG/24 HOURS TOPICAL PATCH TD SCH (10:54)
[2022-04-01] MEDS: METHOCARBAMOL 500 MG TABLET PO PRN (10:54)
[2022-04-01] MEDS: amLODIPine BESYLATE 10 MG TABLET (FP) PO SCH (10:54)
[2022-04-01 11:50] LABS: HEMATOCRIT 38.5 % (35.4-49); HEMOGLOBIN 12.5 GM/dL (11.7-16.9); MCH 31.1 pg (25.7-33.7); MCHC 32.5 g/dl (32.0-35.9); MEAN CELL VOLUME 95.5 fl (80-96); MEAN PLT VOLUME 9.6 fl (7.5-11.1); PLATELET COUNT 205 10^3/uL (134-434); RBC 4.04 M/mm3 (4.00-5.60); RDW 15.3 % (11.9-15.9)
[2022-04-01 11:52] LABS: CALCIUM 9.5 mg/dL (8.5-10.1)
[2022-04-01 11:53] LABS: ALBUMIN 3.5 g/dl (3.4-5.0); BLOOD UREA NITROGEN 17.8 mg/dL (7-18)
[2022-04-01 11:56] LABS: CREATININE 0.8 mg/dL (0.55-1.3)
[2022-04-01 11:57] LABS: BILIRUBIN,TOTAL 0.4 mg/dL (0.2-1); TOT PROT 7.2 g/dl (6.4-8.2)
[2022-04-01] MEDS: NICOTINE 10 MG CARTRIDGE (INHALER) IH PRN (14:45)
[2022-04-01] MEDS: THIAMINE HCL 100 MG TABLET (FP) PO SCH (22:31)
[2022-04-01] MEDS: MELATONIN 5 MG TABLETS PO SCH (22:48)
[2022-04-02] MEDS ORDERED: methaDONE HCL 10 MG TABLET ONE (04:08)
[2022-04-02] MEDS ORDERED: methaDONE HCL 40 MG DISPERSABLE TABLET ONE (04:08)
[2022-04-02] MEDS: methaDONE 40 MG, methaDONE 20 MG PO SCH (05:30)
[2022-04-02] MEDS: LORazepam 1 MG TABLET PO SCH ×4 (05:31→22:32)
[2022-04-02] MEDS: hydrOXYzine PAMOATE 25 MG CAPSULE (FP) PO PRN ×3 (05:31→22:32)
[2022-04-02] MEDS ORDERED: methaDONE HCL 10 MG TABLET PO SCH (06:00)
[2022-04-02] MEDS: METHOCARBAMOL 500 MG TABLET PO PRN ×2 (10:32→22:32)
[2022-04-02] MEDS: buPROPion HCL 100 MG TABLET PO SCH ×2 (10:32→18:12)
[2022-04-02] MEDS: amLODIPine BESYLATE 10 MG TABLET (FP) PO SCH (10:32)
[2022-04-02] MEDS: PRENATAL VITAMINS W/ FOLIC ACID TABLET (FP) PO SCH (10:32)
[2022-04-02] MEDS: busPIRone HCL 10 MG TABLET (FP) PO SCH ×2 (10:33→22:32)
[2022-04-02] MEDS: NICOTINE 10 MG CARTRIDGE (INHALER) IH PRN (10:33)
[2022-04-02] MEDS: NICOTINE 7 MG/24 HOURS TOPICAL PATCH TD SCH (10:33)
[2022-04-02] MEDS: MELATONIN 5 MG TABLETS PO SCH (22:31)
[2022-04-02] MEDS: THIAMINE HCL 100 MG TABLET (FP) PO SCH (22:31)
[2022-04-03] MEDS ORDERED: LORazepam 0.5 MG TABLET PO PRN
[2022-04-03] MEDS ORDERED: methaDONE HCL 10 MG TABLET ONE (04:11)
[2022-04-03] MEDS ORDERED: methaDONE HCL 40 MG DISPERSABLE TABLET ONE (04:11)
[2022-04-03] MEDS: methaDONE 40 MG, methaDONE 20 MG PO SCH (06:28)
[2022-04-03] MEDS: LORazepam 0.5 MG TABLET PO SCH ×4 (06:28→22:25)
[2022-04-03] MEDS: busPIRone HCL 10 MG TABLET (FP) PO SCH ×2 (09:27→22:25)
[2022-04-03] MEDS: buPROPion HCL 100 MG TABLET PO SCH ×2 (09:28→17:47)
[2022-04-03] MEDS: hydrOXYzine PAMOATE 25 MG CAPSULE (FP) PO PRN (09:28)
[2022-04-03] MEDS: PRENATAL VITAMINS W/ FOLIC ACID TABLET (FP) PO SCH (09:28)
[2022-04-03] MEDS: amLODIPine BESYLATE 10 MG TABLET (FP) PO SCH (09:35)
[2022-04-03] MEDS: NICOTINE 10 MG CARTRIDGE (INHALER) IH PRN ×3 (09:38→22:27)
[2022-04-03] MEDS: NICOTINE 7 MG/24 HOURS TOPICAL PATCH TD SCH (10:20)
[2022-04-03] MEDS: THIAMINE HCL 100 MG TABLET (FP) PO SCH (22:25)
[2022-04-03] MEDS: MELATONIN 5 MG TABLETS PO SCH (22:26)
[2022-04-04] MEDS ORDERED: methaDONE HCL 10 MG TABLET ONE (04:43)
[2022-04-04] MEDS ORDERED: methaDONE HCL 40 MG DISPERSABLE TABLET ONE (04:43)
[2022-04-04] MEDS ORDERED: LORazepam 0.5 MG TABLET PO ONE (05:00)
[2022-04-04] MEDS: methaDONE 40 MG, methaDONE 20 MG PO SCH (05:45)
[2022-04-04] MEDS: NICOTINE 10 MG CARTRIDGE (INHALER) IH PRN ×4 (07:48→22:44)
[2022-04-04] MEDS: amLODIPine BESYLATE 10 MG TABLET (FP) PO SCH (10:43)
[2022-04-04] MEDS: NICOTINE 7 MG/24 HOURS TOPICAL PATCH TD SCH (10:43)
[2022-04-04] MEDS: PRENATAL VITAMINS W/ FOLIC ACID TABLET (FP) PO SCH (10:43)
[2022-04-04] MEDS: busPIRone HCL 10 MG TABLET (FP) PO SCH ×2 (10:44→22:16)
[2022-04-04] MEDS: buPROPion HCL 100 MG TABLET PO SCH ×2 (10:44→18:06)
[2022-04-04] MEDS: hydrOXYzine PAMOATE 25 MG CAPSULE (FP) PO PRN (10:46)
[2022-04-04] MEDS: MELATONIN 5 MG TABLETS PO SCH (22:16)
[2022-04-04] MEDS: THIAMINE HCL 100 MG TABLET (FP) PO SCH (22:16)
[2022-04-05] MEDS ORDERED: methaDONE HCL 10 MG TABLET ONE (04:17)
[2022-04-05] MEDS ORDERED: methaDONE HCL 40 MG DISPERSABLE TABLET ONE (04:17)
[2022-04-05] MEDS: methaDONE 40 MG, methaDONE 20 MG PO SCH (05:55)
[2022-04-05 09:08] VITALS: BP 102/58; PULSE 67; TEMP 98.1
[2022-04-05] MEDS: PRENATAL VITAMINS W/ FOLIC ACID TABLET (FP) PO SCH (10:19)
[2022-04-05] MEDS: NICOTINE 7 MG/24 HOURS TOPICAL PATCH TD SCH (10:19)
[2022-04-05] MEDS: buPROPion HCL 100 MG TABLET PO SCH (10:19)
[2022-04-05] MEDS: amLODIPine BESYLATE 10 MG TABLET (FP) PO SCH (10:19)
[2022-04-05] MEDS: busPIRone HCL 10 MG TABLET (FP) PO SCH (10:20)
[2022-04-05] MEDS: NICOTINE 10 MG CARTRIDGE (INHALER) IH PRN (10:22)
== END 2022-04-05 15:08 | disposition other institution (70) | DRG 897 ==
LOC: YASAS 12:40 → Y6N 15:41
PROVIDERS: ADMIT Allergy & Immunology; ATTEND Surgery
PROC: HZ2ZZZZ Detoxification Services for Substance Abuse Treatment (ICD-10-PCS; principal; 2022-03-31)
DX: F10.20 Alcohol dependence, uncomplicated (principal); F11.20 Opioid dependence, uncomplicated; F12.20 Cannabis dependence, uncomplicated; F17.210 Nicotine dependence, cigarettes, uncomplicated; F41.8 Other specified anxiety disorders; F32.A Depression, unspecified; I10 Essential (primary) hypertension; B18.2 Chronic viral hepatitis C; R73.03 Prediabetes
CPT/HCPCS: 36415; 80053; 82947; 82962; 83036; 85027; 86780; 93005; 93010; C9803-CS; U0003; U0005

== ENCOUNTER 2022-04-05 15:01 | Inpatient (IN) | payer OTHER ==
[~2022-04-05 15:01] MED LIST: ACETAMINOPHEN 325 MG TABLET (FP) PO PRN; IBUPROFEN 400 MG TABLET (FP) PO PRN; LOPERAMIDE HCL 2 MG CAPSULE PO PRN; MAG HYDROX/AL HYDROX/SIMETH 30 ML UNIT-DOSE CUP PO PRN; MAGNESIUM CITRATE 300 ML BOTTLE PO PRN; MAGNESIUM HYDROX 2400MG/30ML ORAL SUSPENSION 30 ML CUP PO PRN; MELATONIN 5 MG TABLETS PO SCH; NICOTINE 10 MG CARTRIDGE (INHALER) IH PRN; NICOTINE 7 MG/24 HOURS TOPICAL PATCH TD SCH; NICOTINE POLACRILEX 2 MG GUM BC PRN; PRENATAL VITAMINS W/ FOLIC ACID TABLET (FP) PO SCH; THIAMINE HCL 100 MG TABLET (FP) PO SCH; amLODIPine BESYLATE 10 MG TABLET (FP) PO SCH; guaiFENesin 200 MG/10 ML 10 ML UNIT-DOSE CUPS PO PRN; hydrOXYzine PAMOATE 25 MG CAPSULE (FP) PO PRN; methaDONE 40 MG, methaDONE 20 MG PO SCH; methaDONE HCL 10 MG TABLET PO SCH
[2022-04-05] MEDS ORDERED: ACETAMINOPHEN 325 MG TABLET (FP) PO PRN (16:15)
[2022-04-05] MEDS ORDERED: IBUPROFEN 400 MG TABLET (FP) PO PRN (16:15)
[2022-04-05] MEDS ORDERED: LOPERAMIDE HCL 2 MG CAPSULE PO PRN (16:15)
[2022-04-05] MEDS ORDERED: NICOTINE POLACRILEX 2 MG GUM BC PRN (16:15)
[2022-04-05] MEDS ORDERED: guaiFENesin 200 MG/10 ML 10 ML UNIT-DOSE CUPS PO PRN (16:15)
[2022-04-05] MEDS: MAGNESIUM HYDROX 2400MG/30ML ORAL SUSPENSION 30 ML CUP PO PRN (16:39)
[2022-04-05] MEDS ORDERED: ONDANSETRON *ODT* 4 MG TABLET SL PRN (18:03)
[2022-04-05] MEDS: buPROPion HCL 100 MG TABLET PO SCH (18:52)
[2022-04-05] MEDS: busPIRone HCL 10 MG TABLET (FP) PO SCH (21:05)
[2022-04-05] MEDS: MELATONIN 5 MG TABLETS PO SCH (21:05)
[2022-04-05] MEDS: THIAMINE HCL 100 MG TABLET (FP) PO SCH (21:05)
[2022-04-06] MEDS: buPROPion HCL 100 MG TABLET PO SCH ×4 (08:22→18:28)
[2022-04-06] MEDS: busPIRone HCL 10 MG TABLET (FP) PO SCH ×4 (08:23→21:12)
[2022-04-06] MEDS ORDERED: BISMUTH SUBSALICYLATE 262 MG/15 ML BTL PO ONE (08:56)
[2022-04-06] MEDS ORDERED: methaDONE HCL 10 MG TABLET ONE (09:03)
[2022-04-06] MEDS: methaDONE 40 MG, methaDONE 20 MG PO SCH (09:04)
[2022-04-06] MEDS ORDERED: methaDONE HCL 40 MG DISPERSABLE TABLET ONE (09:04)
[2022-04-06] MEDS: NICOTINE 10 MG CARTRIDGE (INHALER) IH PRN (09:06)
[2022-04-06] MEDS: amLODIPine BESYLATE 10 MG TABLET (FP) PO SCH (10:01)
[2022-04-06] MEDS: PRENATAL VITAMINS W/ FOLIC ACID TABLET (FP) PO SCH (10:03)
[2022-04-06] MEDS: NICOTINE 7 MG/24 HOURS TOPICAL PATCH TD SCH (10:03)
[2022-04-06] MEDS: NIFEdipine E.R 60 MG TABLET PO SCH (12:13)
[2022-04-06] MEDS ORDERED: MAG HYDROX/AL HYDROX/SIMETH 30 ML UNIT-DOSE CUP PO PRN (16:13)
[2022-04-06] MEDS: MELATONIN 5 MG TABLETS PO SCH (21:12)
[2022-04-06] MEDS: THIAMINE HCL 100 MG TABLET (FP) PO SCH (21:12)
[2022-04-07] MEDS ORDERED: methaDONE HCL 40 MG DISPERSABLE TABLET ONE (03:55)
[2022-04-07] MEDS ORDERED: methaDONE HCL 10 MG TABLET ONE (03:55)
[2022-04-07] MEDS: methaDONE 40 MG, methaDONE 20 MG PO SCH (06:16)
[2022-04-07] MEDS: MAGNESIUM CITRATE 300 ML BOTTLE PO PRN (06:50)
[2022-04-07] MEDS ORDERED: SODIUM PHOSPHATE/NA BIPHOS 133 ML ENEMA RC ONE (10:45)
[2022-04-07] MEDS: NIFEdipine E.R 60 MG TABLET PO SCH (11:34)
[2022-04-07] MEDS: busPIRone HCL 10 MG TABLET (FP) PO SCH ×2 (11:34→21:03)
[2022-04-07] MEDS: buPROPion HCL 100 MG TABLET PO SCH ×2 (11:34→18:17)
[2022-04-07] MEDS: PRENATAL VITAMINS W/ FOLIC ACID TABLET (FP) PO SCH (11:34)
[2022-04-07] MEDS: amLODIPine BESYLATE 10 MG TABLET (FP) PO SCH (11:36)
[2022-04-07] MEDS: NICOTINE 7 MG/24 HOURS TOPICAL PATCH TD SCH (11:37)
[2022-04-07] MEDS: NICOTINE 10 MG CARTRIDGE (INHALER) IH PRN (21:03)
[2022-04-07] MEDS: THIAMINE HCL 100 MG TABLET (FP) PO SCH (21:03)
[2022-04-07] MEDS: MELATONIN 5 MG TABLETS PO SCH (21:03)
[2022-04-08] MEDS ORDERED: methaDONE HCL 10 MG TABLET ONE (04:48)
[2022-04-08] MEDS ORDERED: methaDONE HCL 40 MG DISPERSABLE TABLET ONE (04:49)
[2022-04-08] MEDS: methaDONE 40 MG, methaDONE 20 MG PO SCH (06:25)
[2022-04-08] MEDS: MAGNESIUM HYDROX 2400MG/30ML ORAL SUSPENSION 30 ML CUP PO PRN (06:30)
[2022-04-08] MEDS: NICOTINE 10 MG CARTRIDGE (INHALER) IH PRN (10:06)
[2022-04-08] MEDS: buPROPion HCL 100 MG TABLET PO SCH ×2 (10:06→18:50)
[2022-04-08] MEDS: busPIRone HCL 10 MG TABLET (FP) PO SCH ×2 (10:06→21:06)
[2022-04-08] MEDS: PRENATAL VITAMINS W/ FOLIC ACID TABLET (FP) PO SCH (10:06)
[2022-04-08] MEDS: amLODIPine BESYLATE 10 MG TABLET (FP) PO SCH (10:07)
[2022-04-08] MEDS: NIFEdipine E.R 60 MG TABLET PO SCH (10:07)
[2022-04-08] MEDS: NICOTINE 7 MG/24 HOURS TOPICAL PATCH TD SCH (11:22)
[2022-04-08] MEDS: MELATONIN 5 MG TABLETS PO SCH (21:06)
[2022-04-08] MEDS: DOCUSATE SODIUM 100 MG CAPSULE (FP) PO SCH (21:06)
[2022-04-08] MEDS: THIAMINE HCL 100 MG TABLET (FP) PO SCH (21:06)
[2022-04-09] MEDS ORDERED: methaDONE HCL 10 MG TABLET ONE (05:33)
[2022-04-09] MEDS ORDERED: methaDONE HCL 40 MG DISPERSABLE TABLET ONE (05:34)
[2022-04-09] MEDS: methaDONE 40 MG, methaDONE 20 MG PO SCH (06:18)
[2022-04-09] MEDS: NIFEdipine E.R 60 MG TABLET PO SCH (11:06)
[2022-04-09] MEDS: busPIRone HCL 10 MG TABLET (FP) PO SCH ×2 (11:06→21:01)
[2022-04-09] MEDS: buPROPion HCL 100 MG TABLET PO SCH ×2 (11:07→18:32)
[2022-04-09] MEDS: PRENATAL VITAMINS W/ FOLIC ACID TABLET (FP) PO SCH (11:07)
[2022-04-09] MEDS: amLODIPine BESYLATE 10 MG TABLET (FP) PO SCH (11:09)
[2022-04-09] MEDS: NICOTINE 7 MG/24 HOURS TOPICAL PATCH TD SCH (11:09)
[2022-04-09] MEDS: MAGNESIUM HYDROX 2400MG/30ML ORAL SUSPENSION 30 ML CUP PO PRN (14:06)
[2022-04-09] MEDS: NICOTINE 10 MG CARTRIDGE (INHALER) IH PRN (14:06)
[2022-04-09] MEDS: DOCUSATE SODIUM 100 MG CAPSULE (FP) PO SCH (21:01)
[2022-04-09] MEDS: THIAMINE HCL 100 MG TABLET (FP) PO SCH (21:01)
[2022-04-09] MEDS: MELATONIN 5 MG TABLETS PO SCH (21:01)
[2022-04-10] MEDS ORDERED: methaDONE HCL 10 MG TABLET ONE (03:12)
[2022-04-10] MEDS ORDERED: methaDONE HCL 40 MG DISPERSABLE TABLET ONE (03:12)
[2022-04-10] MEDS: methaDONE 40 MG, methaDONE 20 MG PO SCH (05:56)
[2022-04-10] MEDS: NIFEdipine E.R 60 MG TABLET PO SCH (10:08)
[2022-04-10] MEDS: amLODIPine BESYLATE 10 MG TABLET (FP) PO SCH (10:08)
[2022-04-10] MEDS: PRENATAL VITAMINS W/ FOLIC ACID TABLET (FP) PO SCH (10:08)
[2022-04-10] MEDS: NICOTINE 7 MG/24 HOURS TOPICAL PATCH TD SCH (10:08)
[2022-04-10] MEDS: buPROPion HCL 100 MG TABLET PO SCH ×2 (10:08→17:13)
[2022-04-10] MEDS: busPIRone HCL 10 MG TABLET (FP) PO SCH ×2 (10:08→21:05)
[2022-04-10] MEDS: NICOTINE 10 MG CARTRIDGE (INHALER) IH PRN (10:09)
[2022-04-10] MEDS: DOCUSATE SODIUM 100 MG CAPSULE (FP) PO SCH (21:05)
[2022-04-10] MEDS: MELATONIN 5 MG TABLETS PO SCH (21:06)
[2022-04-10] MEDS: THIAMINE HCL 100 MG TABLET (FP) PO SCH (21:06)
[2022-04-11] MEDS ORDERED: methaDONE HCL 40 MG DISPERSABLE TABLET ONE (03:02)
[2022-04-11] MEDS ORDERED: methaDONE HCL 10 MG TABLET ONE (03:02)
[2022-04-11] MEDS: methaDONE 40 MG, methaDONE 20 MG PO SCH (06:27)
[2022-04-11] MEDS: MAGNESIUM HYDROX 2400MG/30ML ORAL SUSPENSION 30 ML CUP PO PRN (06:28)
[2022-04-11] MEDS: busPIRone HCL 10 MG TABLET (FP) PO SCH ×2 (10:44→21:35)
[2022-04-11] MEDS: PRENATAL VITAMINS W/ FOLIC ACID TABLET (FP) PO SCH (10:44)
[2022-04-11] MEDS: NIFEdipine E.R 60 MG TABLET PO SCH (10:44)
[2022-04-11] MEDS: buPROPion HCL 100 MG TABLET PO SCH ×2 (10:44→18:45)
[2022-04-11] MEDS: amLODIPine BESYLATE 10 MG TABLET (FP) PO SCH (10:44)
[2022-04-11] MEDS: NICOTINE 7 MG/24 HOURS TOPICAL PATCH TD SCH (10:44)
[2022-04-11] MEDS: NICOTINE 10 MG CARTRIDGE (INHALER) IH PRN (10:54)
[2022-04-11] MEDS: DOCUSATE SODIUM 100 MG CAPSULE (FP) PO SCH (21:35)
[2022-04-11] MEDS: MELATONIN 5 MG TABLETS PO SCH (21:36)
[2022-04-11] MEDS: THIAMINE HCL 100 MG TABLET (FP) PO SCH (21:36)
[2022-04-12] MEDS ORDERED: methaDONE HCL 10 MG TABLET ONE (02:54)
[2022-04-12] MEDS ORDERED: methaDONE HCL 40 MG DISPERSABLE TABLET ONE (02:54)
[2022-04-12] MEDS: methaDONE 40 MG, methaDONE 20 MG PO SCH (06:27)
[2022-04-12] MEDS: MAGNESIUM CITRATE 300 ML BOTTLE PO PRN (06:29)
[2022-04-12] MEDS: NICOTINE 10 MG CARTRIDGE (INHALER) IH PRN ×2 (06:34→21:12)
[2022-04-12] MEDS: amLODIPine BESYLATE 10 MG TABLET (FP) PO SCH (10:11)
[2022-04-12] MEDS: busPIRone HCL 10 MG TABLET (FP) PO SCH ×2 (10:11→21:12)
[2022-04-12] MEDS: PRENATAL VITAMINS W/ FOLIC ACID TABLET (FP) PO SCH (10:11)
[2022-04-12] MEDS: NIFEdipine E.R 60 MG TABLET PO SCH (10:11)
[2022-04-12] MEDS: buPROPion HCL 100 MG TABLET PO SCH ×2 (10:12→17:56)
[2022-04-12] MEDS: NICOTINE 7 MG/24 HOURS TOPICAL PATCH TD SCH (10:12)
[2022-04-12] MEDS: MELATONIN 5 MG TABLETS PO SCH (21:12)
[2022-04-12] MEDS: THIAMINE HCL 100 MG TABLET (FP) PO SCH (21:13)
[2022-04-12] MEDS: DOCUSATE SODIUM 100 MG CAPSULE (FP) PO SCH (21:13)
[2022-04-13] MEDS ORDERED: methaDONE HCL 10 MG TABLET ONE (02:44)
[2022-04-13] MEDS ORDERED: methaDONE HCL 40 MG DISPERSABLE TABLET ONE (02:44)
[2022-04-13] MEDS: methaDONE 40 MG, methaDONE 20 MG PO SCH (06:15)
[2022-04-13] MEDS: PRENATAL VITAMINS W/ FOLIC ACID TABLET (FP) PO SCH (10:25)
[2022-04-13] MEDS: NICOTINE 7 MG/24 HOURS TOPICAL PATCH TD SCH (10:25)
[2022-04-13] MEDS: NICOTINE 10 MG CARTRIDGE (INHALER) IH PRN (10:25)
[2022-04-13] MEDS: busPIRone HCL 10 MG TABLET (FP) PO SCH ×2 (10:26→21:25)
[2022-04-13] MEDS: buPROPion HCL 100 MG TABLET PO SCH ×2 (10:26→17:57)
[2022-04-13] MEDS: amLODIPine BESYLATE 10 MG TABLET (FP) PO SCH (10:26)
[2022-04-13] MEDS: NIFEdipine E.R 60 MG TABLET PO SCH (10:26)
[2022-04-13] MEDS: THIAMINE HCL 100 MG TABLET (FP) PO SCH (21:25)
[2022-04-13] MEDS: MELATONIN 5 MG TABLETS PO SCH (21:25)
[2022-04-13] MEDS: DOCUSATE SODIUM 100 MG CAPSULE (FP) PO SCH (21:25)
[2022-04-14] MEDS ORDERED: methaDONE HCL 40 MG DISPERSABLE TABLET ONE (02:12)
[2022-04-14] MEDS ORDERED: methaDONE HCL 10 MG TABLET ONE (02:12)
[2022-04-14] MEDS: methaDONE 40 MG, methaDONE 20 MG PO SCH (06:30)
[2022-04-14] MEDS: buPROPion HCL 100 MG TABLET PO SCH ×2 (10:08→17:05)
[2022-04-14] MEDS: NIFEdipine E.R 60 MG TABLET PO SCH (10:08)
[2022-04-14] MEDS: busPIRone HCL 10 MG TABLET (FP) PO SCH ×2 (10:08→21:12)
[2022-04-14] MEDS: amLODIPine BESYLATE 10 MG TABLET (FP) PO SCH (10:08)
[2022-04-14] MEDS: NICOTINE 10 MG CARTRIDGE (INHALER) IH PRN ×3 (10:09→21:12)
[2022-04-14] MEDS: PRENATAL VITAMINS W/ FOLIC ACID TABLET (FP) PO SCH (10:10)
[2022-04-14] MEDS: NICOTINE 7 MG/24 HOURS TOPICAL PATCH TD SCH (10:10)
[2022-04-14] MEDS: THIAMINE HCL 100 MG TABLET (FP) PO SCH (21:12)
[2022-04-14] MEDS: MELATONIN 5 MG TABLETS PO SCH (21:12)
[2022-04-14] MEDS: DOCUSATE SODIUM 100 MG CAPSULE (FP) PO SCH (21:12)
[2022-04-15] MEDS ORDERED: methaDONE HCL 10 MG TABLET ONE (06:37)
[2022-04-15] MEDS ORDERED: methaDONE HCL 40 MG DISPERSABLE TABLET ONE (06:37)
[2022-04-15] MEDS: methaDONE 40 MG, methaDONE 20 MG PO SCH (06:38)
[2022-04-15] MEDS: NICOTINE 10 MG CARTRIDGE (INHALER) IH PRN ×2 (06:39→10:34)
[2022-04-15] MEDS: buPROPion HCL 100 MG TABLET PO SCH ×2 (10:34→17:11)
[2022-04-15] MEDS: amLODIPine BESYLATE 10 MG TABLET (FP) PO SCH (10:34)
[2022-04-15] MEDS: NIFEdipine E.R 60 MG TABLET PO SCH (10:34)
[2022-04-15] MEDS: PRENATAL VITAMINS W/ FOLIC ACID TABLET (FP) PO SCH (10:34)
[2022-04-15] MEDS: busPIRone HCL 10 MG TABLET (FP) PO SCH ×2 (10:34→21:11)
[2022-04-15] MEDS: NICOTINE 7 MG/24 HOURS TOPICAL PATCH TD SCH (10:35)
[2022-04-15] MEDS: MELATONIN 5 MG TABLETS PO SCH (21:10)
[2022-04-15] MEDS: THIAMINE HCL 100 MG TABLET (FP) PO SCH (21:11)
[2022-04-15] MEDS: DOCUSATE SODIUM 100 MG CAPSULE (FP) PO SCH (21:11)
[2022-04-16] MEDS ORDERED: methaDONE HCL 10 MG TABLET ONE (05:47)
[2022-04-16] MEDS: methaDONE 40 MG, methaDONE 20 MG PO SCH (05:47)
[2022-04-16] MEDS ORDERED: methaDONE HCL 40 MG DISPERSABLE TABLET ONE (05:47)
[2022-04-16] MEDS: NICOTINE 10 MG CARTRIDGE (INHALER) IH PRN ×4 (05:49→21:07)
[2022-04-16] MEDS: amLODIPine BESYLATE 10 MG TABLET (FP) PO SCH (09:54)
[2022-04-16] MEDS: NIFEdipine E.R 60 MG TABLET PO SCH (09:54)
[2022-04-16] MEDS: busPIRone HCL 10 MG TABLET (FP) PO SCH ×2 (09:54→21:07)
[2022-04-16] MEDS: buPROPion HCL 100 MG TABLET PO SCH ×2 (09:54→17:08)
[2022-04-16] MEDS: PRENATAL VITAMINS W/ FOLIC ACID TABLET (FP) PO SCH (09:55)
[2022-04-16] MEDS: NICOTINE 7 MG/24 HOURS TOPICAL PATCH TD SCH (09:55)
[2022-04-16] MEDS: MELATONIN 5 MG TABLETS PO SCH (21:07)
[2022-04-16] MEDS: DOCUSATE SODIUM 100 MG CAPSULE (FP) PO SCH (21:07)
[2022-04-16] MEDS: THIAMINE HCL 100 MG TABLET (FP) PO SCH (21:07)
[2022-04-17] MEDS ORDERED: methaDONE HCL 40 MG DISPERSABLE TABLET ONE (03:00)
[2022-04-17] MEDS ORDERED: methaDONE HCL 10 MG TABLET ONE (03:00)
[2022-04-17] MEDS: NICOTINE 10 MG CARTRIDGE (INHALER) IH PRN ×4 (06:08→21:28)
[2022-04-17] MEDS: methaDONE 40 MG, methaDONE 20 MG PO SCH (06:09)
[2022-04-17] MEDS: NIFEdipine E.R 60 MG TABLET PO SCH (09:57)
[2022-04-17] MEDS: amLODIPine BESYLATE 10 MG TABLET (FP) PO SCH (09:57)
[2022-04-17] MEDS: buPROPion HCL 100 MG TABLET PO SCH ×2 (09:57→18:18)
[2022-04-17] MEDS: busPIRone HCL 10 MG TABLET (FP) PO SCH ×2 (09:57→21:27)
[2022-04-17] MEDS: NICOTINE 7 MG/24 HOURS TOPICAL PATCH TD SCH (09:58)
[2022-04-17] MEDS: PRENATAL VITAMINS W/ FOLIC ACID TABLET (FP) PO SCH (09:58)
[2022-04-17] MEDS: THIAMINE HCL 100 MG TABLET (FP) PO SCH (21:27)
[2022-04-17] MEDS: DOCUSATE SODIUM 100 MG CAPSULE (FP) PO SCH (21:27)
[2022-04-17] MEDS: MELATONIN 5 MG TABLETS PO SCH (21:27)
[2022-04-18] MEDS ORDERED: methaDONE HCL 40 MG DISPERSABLE TABLET ONE (03:49)
[2022-04-18] MEDS ORDERED: methaDONE HCL 10 MG TABLET ONE (03:49)
[2022-04-18] MEDS: methaDONE 40 MG, methaDONE 20 MG PO SCH (06:22)
[2022-04-18] MEDS: NIFEdipine E.R 60 MG TABLET PO SCH (10:48)
[2022-04-18] MEDS: NICOTINE 10 MG CARTRIDGE (INHALER) IH PRN ×2 (10:48→17:13)
[2022-04-18] MEDS: buPROPion HCL 100 MG TABLET PO SCH ×2 (10:48→17:13)
[2022-04-18] MEDS: PRENATAL VITAMINS W/ FOLIC ACID TABLET (FP) PO SCH (10:48)
[2022-04-18] MEDS: busPIRone HCL 10 MG TABLET (FP) PO SCH ×2 (10:48→21:20)
[2022-04-18] MEDS: amLODIPine BESYLATE 10 MG TABLET (FP) PO SCH (10:49)
[2022-04-18] MEDS: NICOTINE 7 MG/24 HOURS TOPICAL PATCH TD SCH (10:49)
[2022-04-18] MEDS: MELATONIN 5 MG TABLETS PO SCH (21:20)
[2022-04-18] MEDS: DOCUSATE SODIUM 100 MG CAPSULE (FP) PO SCH (21:20)
[2022-04-18] MEDS: THIAMINE HCL 100 MG TABLET (FP) PO SCH (21:20)
[2022-04-19] MEDS ORDERED: methaDONE HCL 10 MG TABLET ONE (03:37)
[2022-04-19] MEDS ORDERED: methaDONE HCL 40 MG DISPERSABLE TABLET ONE (03:37)
[2022-04-19] MEDS: methaDONE 40 MG, methaDONE 20 MG PO SCH (05:43)
[2022-04-19] MEDS: NICOTINE 10 MG CARTRIDGE (INHALER) IH PRN (05:46)
[2022-04-19 06:38] VITALS: BP 157/60; PULSE 70; TEMP 97.5
== END 2022-04-19 09:30 | disposition home or self-care (01) | DRG 895 ==
LOC: YASAS 15:01 → Y3W 15:03
PROVIDERS: ADMIT Allergy & Immunology; ATTEND Psychiatry & Neurology Pain Medicine
PROC: HZ42ZZZ Group Counseling for Substance Abuse Treatment, Cognitive-Behavioral (ICD-10-PCS; principal; 2022-04-05)
DX: F11.20 Opioid dependence, uncomplicated (principal); F10.20 Alcohol dependence, uncomplicated; F12.20 Cannabis dependence, uncomplicated; F17.210 Nicotine dependence, cigarettes, uncomplicated; F32.A Depression, unspecified; F41.9 Anxiety disorder, unspecified; I10 Essential (primary) hypertension; K59.00 Constipation, unspecified; R11.2 Nausea with vomiting, unspecified; Z86.19 Personal history of other infectious and parasitic diseases
CPT/HCPCS: 82962; Q0162

== ENCOUNTER 2022-09-25 11:48 | Inpatient (IN) | payer OTHER ==
[2022-09-25 12:24] VITALS: BMI 23.7
[2022-09-25] MEDS ORDERED: IBUPROFEN 400 MG TABLET (FP) PO PRN (13:10)
[2022-09-25] MEDS ORDERED: BENZOCAINE/MENTHOL (CHLORASEPTIC ) LOZENGE MM PRN (13:10)
[2022-09-25] MEDS ORDERED: POLYETHYLENE GLYCOL (HEALTHYLAX) 3350 17 GM PACKET PO PRN (13:10)
[2022-09-25] MEDS ORDERED: BISMUTH SUBSALICYLATE 524 MG/30 ML PO PRN (13:10)
[2022-09-25] MEDS ORDERED: MAG HYDROX/AL HYDROX/SIMETH 30 ML UNIT-DOSE CUP PO PRN (13:10)
[2022-09-25] MEDS ORDERED: LOPERAMIDE HCL 2 MG CAPSULE PO PRN (13:10)
[2022-09-25] MEDS ORDERED: NALOXONE HCL (KLOXXADO) 8 MG SPRAY NS PRN (13:10)
[2022-09-25] MEDS ORDERED: DICYCLOMINE HCL 10 MG CAPSULE PO PRN (13:10)
[2022-09-25] MEDS ORDERED: IBUPROFEN 600 MG TABLET (FP) PO PRN (13:10)
[2022-09-25] MEDS ORDERED: ACETAMINOPHEN 325 MG TABLET (FP) PO PRN ×2 (13:10)
[2022-09-25] MEDS ORDERED: chlordiazePOXIDE HCL 25 MG CAPSULE PO PRN (13:10)
[2022-09-25] MEDS ORDERED: ONDANSETRON *ODT* 4 MG TABLET SL PRN (13:10)
[2022-09-25] MEDS: chlordiazePOXIDE HCL 25 MG CAPSULE PO SCH ×2 (17:50→22:31)
[2022-09-25] MEDS: MELATONIN 5 MG TABLETS PO SCH (22:32)
[2022-09-25] MEDS: THIAMINE HCL 100 MG TABLET (FP) PO SCH (22:32)
[2022-09-26] MEDS: chlordiazePOXIDE HCL 25 MG CAPSULE PO SCH ×4 (05:52→22:30)
[2022-09-26] MEDS: amLODIPine BESYLATE 10 MG TABLET (FP) PO SCH (10:14)
[2022-09-26] MEDS: PRENATAL VITAMINS W/ FOLIC ACID TABLET (FP) PO SCH (10:14)
[2022-09-26] MEDS ORDERED: methaDONE HCL 10 MG TABLET PO ONE ×3 (10:18→13:07)
[2022-09-26] MEDS ORDERED: methaDONE 40 MG, methaDONE 10 MG PO ONE (10:45)
[2022-09-26] MEDS: NIFEdipine E.R 60 MG TABLET PO SCH (10:58)
[2022-09-26] MEDS ORDERED: buPROPion HCL 100 MG TABLET PO ONE (11:01)
[2022-09-26] MEDS ORDERED: busPIRone HCL 5 MG TABLET PO ONE (11:08)
[2022-09-26] MEDS: buPROPion HCL 100 MG TABLET PO SCH (17:35)
[2022-09-26] MEDS: THIAMINE HCL 100 MG TABLET (FP) PO SCH (22:29)
[2022-09-26] MEDS: busPIRone HCL 10 MG TABLET (FP) PO SCH (22:29)
[2022-09-26] MEDS: MELATONIN 5 MG TABLETS PO SCH (22:30)
[2022-09-26] MEDS: MAGNESIUM HYDROX 2400MG/30ML ORAL SUSPENSION 30 ML CUP PO PRN (22:31)
[2022-09-27] MEDS: chlordiazePOXIDE HCL 25 MG CAPSULE PO SCH ×4 (05:37→22:07)
[2022-09-27] MEDS: methaDONE 40 MG, methaDONE 20 MG PO SCH (05:41)
[2022-09-27] MEDS ORDERED: methaDONE HCL 10 MG TABLET PO SCH (06:00)
[2022-09-27] MEDS: PRENATAL VITAMINS W/ FOLIC ACID TABLET (FP) PO SCH (10:23)
[2022-09-27] MEDS: METHOCARBAMOL 500 MG TABLET PO PRN (10:24)
[2022-09-27] MEDS: amLODIPine BESYLATE 10 MG TABLET (FP) PO SCH (10:24)
[2022-09-27] MEDS: buPROPion HCL 100 MG TABLET PO SCH ×2 (10:24→19:14)
[2022-09-27] MEDS: NIFEdipine E.R 60 MG TABLET PO SCH (10:24)
[2022-09-27] MEDS: busPIRone HCL 10 MG TABLET (FP) PO SCH ×2 (10:25→22:08)
[2022-09-27 10:45] LABS: HEMATOCRIT 35.5 % (35.4-49); HEMOGLOBIN 11.5 GM/dL (11.7-16.9); MCH 32.2 pg (25.7-33.7); MCHC 32.3 g/dl (32.0-35.9); MEAN CELL VOLUME 99.6 fl (80-96); MEAN PLT VOLUME 10.2 fl (7.5-11.1); PLATELET COUNT 173 10^3/uL (134-434); RBC 3.56 M/mm3 (4.00-5.60); RDW 14.3 % (11.9-15.9); WHITE BLOOD COUNT 5.8 K/mm3 (4.0-10.0)
[2022-09-27 11:22] LABS: ALBUMIN 3.3 g/dl (3.4-5.0); BLOOD UREA NITROGEN 19.5 mg/dL (7-18)
[2022-09-27 11:25] LABS: CREATININE 0.8 mg/dL (0.55-1.3); TOT PROT 6.5 g/dl (6.4-8.2)
[2022-09-27 11:26] LABS: BILIRUBIN,TOTAL 0.3 mg/dL (0.2-1)
[2022-09-27] MEDS: TOLNAFTATE 1% CREAM 15 GM TUBE TP SCH ×2 (11:39→22:09)
[2022-09-27] MEDS: MELATONIN 5 MG TABLETS PO SCH (22:07)
[2022-09-27] MEDS: THIAMINE HCL 100 MG TABLET (FP) PO SCH (22:07)
[2022-09-27] MEDS: hydrOXYzine PAMOATE 25 MG CAPSULE (FP) PO PRN (22:10)
[2022-09-27] MEDS: MAGNESIUM HYDROX 2400MG/30ML ORAL SUSPENSION 30 ML CUP PO PRN (22:11)
[2022-09-28] MEDS ORDERED: chlordiazePOXIDE HCL 10 MG CAPSULE PO PRN
[2022-09-28] MEDS: chlordiazePOXIDE HCL 10 MG CAPSULE PO SCH ×4 (05:27→22:16)
[2022-09-28] MEDS: methaDONE 40 MG, methaDONE 20 MG PO SCH (05:27)
[2022-09-28] MEDS ORDERED: cloNIDine HCL 0.1 MG TABLET PO PRN (09:55)
[2022-09-28] MEDS: TOLNAFTATE 1% CREAM 15 GM TUBE TP SCH ×2 (10:11→22:17)
[2022-09-28] MEDS: PRENATAL VITAMINS W/ FOLIC ACID TABLET (FP) PO SCH (10:13)
[2022-09-28] MEDS: busPIRone HCL 10 MG TABLET (FP) PO SCH ×2 (10:13→22:16)
[2022-09-28] MEDS: amLODIPine BESYLATE 10 MG TABLET (FP) PO SCH (10:13)
[2022-09-28] MEDS: METHOCARBAMOL 500 MG TABLET PO PRN (10:13)
[2022-09-28] MEDS: buPROPion HCL 100 MG TABLET PO SCH ×2 (10:14→17:40)
[2022-09-28] MEDS: NIFEdipine E.R 60 MG TABLET PO SCH (10:14)
[2022-09-28] MEDS: NICOTINE 10 MG CARTRIDGE (INHALER) IH PRN ×3 (10:17→22:26)
[2022-09-28] MEDS: MELATONIN 5 MG TABLETS PO SCH (22:16)
[2022-09-28] MEDS: THIAMINE HCL 100 MG TABLET (FP) PO SCH (22:18)
[2022-09-29] MEDS: methaDONE 40 MG, methaDONE 20 MG PO SCH (05:18)
[2022-09-29] MEDS: chlordiazePOXIDE HCL 10 MG CAPSULE PO SCH ×2 (05:18→17:53)
[2022-09-29] MEDS: CARBAMIDE PEROXIDE 6.5% OTIC 15 ML BOTTLE AU SCH ×2 (10:30→22:21)
[2022-09-29] MEDS: amLODIPine BESYLATE 10 MG TABLET (FP) PO SCH (10:31)
[2022-09-29] MEDS: PRENATAL VITAMINS W/ FOLIC ACID TABLET (FP) PO SCH (10:31)
[2022-09-29] MEDS: busPIRone HCL 10 MG TABLET (FP) PO SCH ×2 (10:31→22:21)
[2022-09-29] MEDS: NIFEdipine E.R 60 MG TABLET PO SCH (10:32)
[2022-09-29] MEDS: buPROPion HCL 100 MG TABLET PO SCH ×2 (10:32→17:54)
[2022-09-29] MEDS: TOLNAFTATE 1% CREAM 15 GM TUBE TP SCH ×2 (10:33→22:22)
[2022-09-29] MEDS: NICOTINE 10 MG CARTRIDGE (INHALER) IH PRN ×3 (10:34→22:43)
[2022-09-29] MEDS: MELATONIN 5 MG TABLETS PO SCH (22:21)
[2022-09-29] MEDS: THIAMINE HCL 100 MG TABLET (FP) PO SCH (22:21)
[2022-09-30] MEDS ORDERED: chlordiazePOXIDE HCL 10 MG CAPSULE PO ONE (05:00)
[2022-09-30] MEDS: methaDONE 40 MG, methaDONE 20 MG PO SCH (06:15)
[2022-09-30] MEDS: CARBAMIDE PEROXIDE 6.5% OTIC 15 ML BOTTLE AU SCH (10:44)
[2022-09-30] MEDS: TOLNAFTATE 1% CREAM 15 GM TUBE TP SCH (10:45)
[2022-09-30] MEDS: PRENATAL VITAMINS W/ FOLIC ACID TABLET (FP) PO SCH (10:45)
[2022-09-30] MEDS: amLODIPine BESYLATE 10 MG TABLET (FP) PO SCH (10:45)
[2022-09-30] MEDS: NIFEdipine E.R 60 MG TABLET PO SCH (10:45)
[2022-09-30] MEDS: hydrOXYzine PAMOATE 25 MG CAPSULE (FP) PO PRN (10:45)
[2022-09-30] MEDS: buPROPion HCL 100 MG TABLET PO SCH (10:45)
[2022-09-30] MEDS: busPIRone HCL 10 MG TABLET (FP) PO SCH (10:46)
[2022-09-30 10:47] VITALS: BP 137/71; PULSE 67; RESP 16; TEMP 97.8
[2022-09-30] MEDS: NICOTINE 10 MG CARTRIDGE (INHALER) IH PRN (10:48)
== END 2022-09-30 11:40 | disposition other institution (70) | DRG 897 ==
LOC: YASAS 11:48 → Y6N 13:25
PROVIDERS: ADMIT Allergy & Immunology; ATTEND Family Medicine Addiction Medicine
PROC: HZ2ZZZZ Detoxification Services for Substance Abuse Treatment (ICD-10-PCS; principal; 2022-09-25)
DX: F10.230 Alcohol dependence with withdrawal, uncomplicated (principal); F11.20 Opioid dependence, uncomplicated; F12.10 Cannabis abuse, uncomplicated; F17.210 Nicotine dependence, cigarettes, uncomplicated; F41.8 Other specified anxiety disorders; I10 Essential (primary) hypertension; R73.9 Hyperglycemia, unspecified; R76.11 Nonspecific reaction to tuberculin skin test without active tuberculosis; Z86.19 Personal history of other infectious and parasitic diseases; Z91.013 Allergy to seafood
CPT/HCPCS: 36415; 71046-TC-FY; 80053; 82947; 83036; 85027; 86780; C9803-CS; U0003; U0005

== ENCOUNTER 2022-09-30 12:04 | Inpatient (IN) | payer OTHER ==
[2022-09-30] MEDS ORDERED: ACETAMINOPHEN 325 MG TABLET (FP) PO PRN (13:20)
[2022-09-30] MEDS ORDERED: MAG HYDROX/AL HYDROX/SIMETH 30 ML UNIT-DOSE CUP PO PRN (13:20)
[2022-09-30] MEDS ORDERED: guaiFENesin 200 MG/10 ML 10 ML UNIT-DOSE CUPS PO PRN (13:20)
[2022-09-30] MEDS ORDERED: BENZOCAINE/MENTHOL (CHLORASEPTIC ) LOZENGE MM PRN (13:20)
[2022-09-30] MEDS ORDERED: NICOTINE 14 MG/24 HOURS TOPICAL PATCH TD PRN (13:20)
[2022-09-30] MEDS ORDERED: LOPERAMIDE HCL 2 MG CAPSULE PO PRN (13:20)
[2022-09-30] MEDS ORDERED: hydrOXYzine PAMOATE 25 MG CAPSULE (FP) PO PRN (13:20)
[2022-09-30] MEDS ORDERED: POLYETHYLENE GLYCOL (HEALTHYLAX) 3350 17 GM PACKET PO PRN (13:20)
[2022-09-30] MEDS ORDERED: MAGNESIUM HYDROX 2400MG/30ML ORAL SUSPENSION 30 ML CUP PO PRN (13:20)
[2022-09-30] MEDS ORDERED: P-EPHED 60MG/TRIPROLIDI 2.5MG TABLET PO PRN (13:20)
[2022-09-30] MEDS ORDERED: cloNIDine HCL 0.1 MG TABLET PO PRN (15:04)
[2022-09-30] MEDS: buPROPion HCL 100 MG TABLET PO SCH (17:54)
[2022-09-30] MEDS: MELATONIN 5 MG TABLETS PO SCH (21:13)
[2022-09-30] MEDS: busPIRone HCL 10 MG TABLET (FP) PO SCH (21:14)
[2022-09-30] MEDS: TOLNAFTATE 1% CREAM 15 GM TUBE TP SCH (21:14)
[2022-09-30] MEDS ORDERED: THIAMINE HCL 100 MG TABLET (FP) PO SCH (22:00)
[2022-10-01] MEDS ORDERED: amLODIPine BESYLATE 10 MG TABLET (FP) PO SCH (10:00)
[2022-10-01] MEDS ORDERED: PATIENT'S OWN MEDICATION (NON-FORMULARY) (Methadone 60 MG) PO SCH (10:00)
[2022-10-01] MEDS: THIAMINE HCL 100 MG TABLET (FP) PO SCH (10:15)
[2022-10-01] MEDS: busPIRone HCL 10 MG TABLET (FP) PO SCH ×2 (10:15→21:03)
[2022-10-01] MEDS: buPROPion HCL 100 MG TABLET PO SCH ×2 (10:16→17:32)
[2022-10-01] MEDS: PRENATAL VITAMINS W/ FOLIC ACID TABLET (FP) PO SCH (10:16)
[2022-10-01] MEDS: NIFEdipine E.R 60 MG TABLET PO SCH (10:16)
[2022-10-01] MEDS: methaDONE 40 MG, methaDONE 20 MG PO SCH (10:17)
[2022-10-01] MEDS: TOLNAFTATE 1% CREAM 15 GM TUBE TP SCH ×2 (10:17→21:04)
[2022-10-01] MEDS: IBUPROFEN 400 MG TABLET (FP) PO PRN (10:18)
[2022-10-01] MEDS: NICOTINE 10 MG CARTRIDGE (INHALER) IH PRN ×2 (10:20→13:50)
[2022-10-01] MEDS ORDERED: FLU VACC QS2022-23(6MOS UP)/PF 60 MCG/0.5 ML SYRINGE IM ONE (12:00)
[2022-10-01] MEDS: LACTULOSE 20 GM/30 ML UDC (FOR ORAL USE ONLY) PO SCH ×2 (13:49→21:03)
[2022-10-01] MEDS: MELATONIN 5 MG TABLETS PO SCH (21:03)
[2022-10-02] MEDS: LACTULOSE 20 GM/30 ML UDC (FOR ORAL USE ONLY) PO SCH ×3 (06:18→21:31)
[2022-10-02] MEDS: PRENATAL VITAMINS W/ FOLIC ACID TABLET (FP) PO SCH (09:35)
[2022-10-02] MEDS: IBUPROFEN 400 MG TABLET (FP) PO PRN (09:36)
[2022-10-02] MEDS: busPIRone HCL 10 MG TABLET (FP) PO SCH ×2 (09:37→21:31)
[2022-10-02] MEDS: methaDONE 40 MG, methaDONE 20 MG PO SCH (09:37)
[2022-10-02] MEDS: THIAMINE HCL 100 MG TABLET (FP) PO SCH (09:37)
[2022-10-02] MEDS: NIFEdipine E.R 60 MG TABLET PO SCH (09:37)
[2022-10-02] MEDS: buPROPion HCL 100 MG TABLET PO SCH ×2 (09:37→17:06)
[2022-10-02] MEDS: TOLNAFTATE 1% CREAM 15 GM TUBE TP SCH ×2 (09:38→21:59)
[2022-10-02] MEDS: NICOTINE 10 MG CARTRIDGE (INHALER) IH PRN ×2 (17:08→21:34)
[2022-10-02] MEDS: MELATONIN 5 MG TABLETS PO SCH (21:32)
[2022-10-03] MEDS: LACTULOSE 20 GM/30 ML UDC (FOR ORAL USE ONLY) PO SCH ×3 (05:57→21:37)
[2022-10-03] MEDS: NICOTINE 10 MG CARTRIDGE (INHALER) IH PRN ×3 (05:58→17:14)
[2022-10-03] MEDS: PRENATAL VITAMINS W/ FOLIC ACID TABLET (FP) PO SCH (09:28)
[2022-10-03] MEDS: NIFEdipine E.R 60 MG TABLET PO SCH (09:29)
[2022-10-03] MEDS: methaDONE 40 MG, methaDONE 20 MG PO SCH (09:29)
[2022-10-03] MEDS: busPIRone HCL 10 MG TABLET (FP) PO SCH ×2 (09:29→21:37)
[2022-10-03] MEDS: TOLNAFTATE 1% CREAM 15 GM TUBE TP SCH ×2 (09:29→21:37)
[2022-10-03] MEDS: buPROPion HCL 100 MG TABLET PO SCH ×2 (09:29→17:12)
[2022-10-03] MEDS: THIAMINE HCL 100 MG TABLET (FP) PO SCH (09:29)
[2022-10-03 11:56] VITALS: RESP 18
[2022-10-03] MEDS: MELATONIN 5 MG TABLETS PO SCH (21:37)
[2022-10-04] MEDS: methaDONE 40 MG, methaDONE 20 MG PO SCH (06:14)
[2022-10-04] MEDS: LACTULOSE 20 GM/30 ML UDC (FOR ORAL USE ONLY) PO SCH ×3 (06:14→21:35)
[2022-10-04] MEDS: PRENATAL VITAMINS W/ FOLIC ACID TABLET (FP) PO SCH (09:48)
[2022-10-04] MEDS: busPIRone HCL 10 MG TABLET (FP) PO SCH ×2 (09:48→21:35)
[2022-10-04] MEDS: buPROPion HCL 100 MG TABLET PO SCH ×2 (09:49→17:59)
[2022-10-04] MEDS: TOLNAFTATE 1% CREAM 15 GM TUBE TP SCH ×2 (09:49→21:36)
[2022-10-04] MEDS: NIFEdipine E.R 60 MG TABLET PO SCH (09:49)
[2022-10-04] MEDS: THIAMINE HCL 100 MG TABLET (FP) PO SCH (09:49)
[2022-10-04] MEDS: NICOTINE 10 MG CARTRIDGE (INHALER) IH PRN ×2 (09:49→18:00)
[2022-10-04] MEDS: MELATONIN 5 MG TABLETS PO SCH (21:35)
[2022-10-05] MEDS: LACTULOSE 20 GM/30 ML UDC (FOR ORAL USE ONLY) PO SCH ×4 (06:19→21:10)
[2022-10-05] MEDS: methaDONE 40 MG, methaDONE 20 MG PO SCH (06:20)
[2022-10-05] MEDS: buPROPion HCL 100 MG TABLET PO SCH ×2 (09:55→17:01)
[2022-10-05] MEDS: THIAMINE HCL 100 MG TABLET (FP) PO SCH (09:55)
[2022-10-05] MEDS: PRENATAL VITAMINS W/ FOLIC ACID TABLET (FP) PO SCH (09:55)
[2022-10-05] MEDS: busPIRone HCL 10 MG TABLET (FP) PO SCH ×2 (09:55→21:10)
[2022-10-05] MEDS: NIFEdipine E.R 60 MG TABLET PO SCH (09:55)
[2022-10-05] MEDS: NICOTINE 10 MG CARTRIDGE (INHALER) IH PRN ×2 (09:56→21:10)
[2022-10-05] MEDS: TOLNAFTATE 1% CREAM 15 GM TUBE TP SCH ×2 (09:56→21:10)
[2022-10-05] MEDS: IBUPROFEN 400 MG TABLET (FP) PO PRN (17:01)
[2022-10-05] MEDS: MELATONIN 5 MG TABLETS PO SCH (21:10)
[2022-10-06] MEDS: methaDONE 40 MG, methaDONE 20 MG PO SCH (06:16)
[2022-10-06] MEDS: NICOTINE 10 MG CARTRIDGE (INHALER) IH PRN ×3 (08:49→17:27)
[2022-10-06] MEDS: THIAMINE HCL 100 MG TABLET (FP) PO SCH (10:33)
[2022-10-06] MEDS: busPIRone HCL 10 MG TABLET (FP) PO SCH ×2 (10:33→21:24)
[2022-10-06] MEDS: LACTULOSE 20 GM/30 ML UDC (FOR ORAL USE ONLY) PO SCH ×4 (10:34→21:23)
[2022-10-06] MEDS: PRENATAL VITAMINS W/ FOLIC ACID TABLET (FP) PO SCH (10:34)
[2022-10-06] MEDS: TOLNAFTATE 1% CREAM 15 GM TUBE TP SCH ×2 (10:34→21:24)
[2022-10-06] MEDS: NIFEdipine E.R 60 MG TABLET PO SCH (10:34)
[2022-10-06] MEDS: buPROPion HCL 100 MG TABLET PO SCH ×2 (10:35→17:24)
[2022-10-06] MEDS: IBUPROFEN 400 MG TABLET (FP) PO PRN (10:37)
[2022-10-06] MEDS: MELATONIN 5 MG TABLETS PO SCH (21:23)
[2022-10-07] MEDS: methaDONE 40 MG, methaDONE 20 MG PO SCH (06:23)
[2022-10-07] MEDS: PRENATAL VITAMINS W/ FOLIC ACID TABLET (FP) PO SCH (10:15)
[2022-10-07] MEDS: NIFEdipine E.R 60 MG TABLET PO SCH (10:15)
[2022-10-07] MEDS: busPIRone HCL 10 MG TABLET (FP) PO SCH ×2 (10:15→21:43)
[2022-10-07] MEDS: LACTULOSE 20 GM/30 ML UDC (FOR ORAL USE ONLY) PO SCH ×4 (10:15→21:43)
[2022-10-07] MEDS: TOLNAFTATE 1% CREAM 15 GM TUBE TP SCH ×2 (10:16→21:44)
[2022-10-07] MEDS: buPROPion HCL 100 MG TABLET PO SCH ×2 (10:16→17:51)
[2022-10-07] MEDS: THIAMINE HCL 100 MG TABLET (FP) PO SCH (10:16)
[2022-10-07] MEDS: NICOTINE 10 MG CARTRIDGE (INHALER) IH PRN (10:17)
[2022-10-07 11:14] VITALS: PULSE 74
[2022-10-07] MEDS: MELATONIN 5 MG TABLETS PO SCH (21:43)
[2022-10-08] MEDS: methaDONE 40 MG, methaDONE 20 MG PO SCH (06:13)
[2022-10-08 06:16] VITALS: BP 143/80; TEMP 97.3
[2022-10-08] MEDS: LACTULOSE 20 GM/30 ML UDC (FOR ORAL USE ONLY) PO SCH (09:08)
[2022-10-08] MEDS: busPIRone HCL 10 MG TABLET (FP) PO SCH (09:08)
[2022-10-08] MEDS: TOLNAFTATE 1% CREAM 15 GM TUBE TP SCH (09:09)
[2022-10-08] MEDS: buPROPion HCL 100 MG TABLET PO SCH (09:09)
[2022-10-08] MEDS: NIFEdipine E.R 60 MG TABLET PO SCH (09:09)
[2022-10-08] MEDS: THIAMINE HCL 100 MG TABLET (FP) PO SCH (09:09)
[2022-10-08] MEDS: PRENATAL VITAMINS W/ FOLIC ACID TABLET (FP) PO SCH (09:09)
[2022-10-08] MEDS: IBUPROFEN 400 MG TABLET (FP) PO PRN (09:11)
[2022-10-08] MEDS: NICOTINE 10 MG CARTRIDGE (INHALER) IH PRN (09:12)
== END 2022-10-08 09:17 | disposition home or self-care (01) | DRG 895 ==
LOC: YASAS 12:04 → Y3W 12:05
PROVIDERS: ADMIT Allergy & Immunology; ATTEND Psychiatry & Neurology Pain Medicine
PROC: HZ42ZZZ Group Counseling for Substance Abuse Treatment, Cognitive-Behavioral (ICD-10-PCS; principal; 2022-09-30)
DX: F10.20 Alcohol dependence, uncomplicated (principal); F11.20 Opioid dependence, uncomplicated; E72.20 Disorder of urea cycle metabolism, unspecified; F12.20 Cannabis dependence, uncomplicated; F17.210 Nicotine dependence, cigarettes, uncomplicated; F32.A Depression, unspecified; F41.9 Anxiety disorder, unspecified; I10 Essential (primary) hypertension; B18.2 Chronic viral hepatitis C; R94.5 Abnormal results of liver function studies; Z20.822 Contact with and (suspected) exposure to COVID-19
CPT/HCPCS: 82140; C9803-CS; G0008; Q2036; U0003; U0005